=== PATIENT | male | born 1945 | race Caucasian/White ===

== ENCOUNTER 2017-01-25 15:16 | Observation (INO) | payer OTHER, BC ==
[~2017-01-25] VITALS: Ht 188 cm; Wt 99.8 kg
[2017-01-25] MEDS ORDERED: SODIUM CHLORIDE 0.9% 1000ML 1,000 ML IV SCH ×2 (15:29→21:30)
[2017-01-25 15:43] LABS: BASO % 0.2 %; BASO ABS # 0.01 K/uL (0-0.2); COMPLETE YES; EOS % 2.2 %; HEMATOCRIT 42.1 % (42-52); LYMPH % 40.8 %; LYMPH ABS # 2.63 K/uL (1.2-3.4); MEAN CELL VOLUME 90.5 fL (80-100); MEAN CORPUSCULAR HEMOGLOBIN 32.5 pg (25-34); MEAN CORPUSCULAR HGB CONC 35.9 g/dl (32-36); MEAN PLATELET VOLUME 10.5 fL (7.4-10.4); MONO % 9.3 %; NEUT % 47.5 %; PLATELET COUNT 131 K/uL (130-400); RED BLOOD COUNT 4.65 M/uL (4.7-6.1); WHITE BLOOD COUNT 6.45 K/uL (4.8-10.8)
[2017-01-25] MEDS ORDERED: CYAN250T PO (15:50)
[2017-01-25] MEDS ORDERED: MULT-845 PO (15:50)
--- NOTE | 2017-01-25 15:57 | EMERGENCY ROOM VISIT NOTE ---
History First contact with patient: 15:25 Chief Complaint: STROKE SYMPTOMS Stated Complaint: STROKE LIKE SYMPTOMS Nursing Triage Summary: pt reports 2 weeks ago has been having right sided weakness. hands and feet tingling. pt reports numbness in face 2 days ago. lips feeling numb. ringing in ears for over 1 month. History of Present Illness The patient is a 71 year old male who presents to the Emergency Room with complaints of Past Medical & Surgical Medical Problems: (1) No Known Active Medical Problems Social History Smoking Status: Never Smoker Current/Historical Medications Scheduled Cyanocobalamin (Vitamin B-12), Unknown Dose PO DAILY Multiple Vitamins W/ Minerals (Centrum Silver Adult 50+), 1 TAB PO DAILY Allergies Coded Allergies: Iodine (Verified Allergy, Intermediate, Violent illness, 01/25/17) Shellfish (Verified Allergy, Intermediate, Violent illness, 01/25/17) Physical Exam Vital Signs Date Time Temp Pulse Resp B/P Pulse Ox O2 Delivery O2 Flow Rate FiO2 01/25/17 16:51 69 20 147/83 95 Room Air 01/25/17 15:36 96 Room Air 01/25/17 15:36 79 01/25/17 15:22 36.8 77 16 188/85 97 Room Air Medical Decision & Procedures Laboratory Results 01/25/17 15:32 Red Blood Count 4.65, Mean Corpuscular Volume 90.5, Mean Corpuscular Hemoglobin 32.5, Mean Corpuscular Hemoglobin Concent 35.9, Mean Platelet Volume 10.5, Neutrophils (%) (Auto) 47.5, Lymphocytes (%) (Auto) 40.8, Monocytes (%) (Auto) 9.3, Eosinophils (%) (Auto) 2.2, Basophils (%) (Auto) 0.2, Neutrophils # (Auto) 3.07, Lymphocytes # (Auto) 2.63, Monocytes # (Auto) 0.60, Eosinophils # (Auto) 0.14, Basophils # (Auto) 0.01 01/25/17 15:32 Test 01/25/17 15:32 01/25/17 15:47 01/25/17 16:50 White Blood Count 6.45 K/uL (4.8-10.8) Red Blood Count 4.65 M/uL (4.7-6.1) Hemoglobin 15.1 g/dL (14.0-18.0) Hematocrit 42.1 % (42-52) Mean Corpuscular Volume 90.5 fL (80-100) Mean Corpuscular Hemoglobin 32.5 pg (25-34) Mean Corpuscular Hemoglobin Concent 35.9 g/dl (32-36) Platelet Count 131 K/uL (130-400) Mean Platelet Volume 10.5 fL (7.4-10.4) Neutrophils (%) (Auto) 47.5 % Lymphocytes (%) (Auto) 40.8 % Monocytes (%) (Auto) 9.3 % Eosinophils (%) (Auto) 2.2 % Basophils (%) (Auto) 0.2 % Neutrophils # (Auto) 3.07 K/uL (1.4-6.5) Lymphocytes # (Auto) 2.63 K/uL (1.2-3.4) Monocytes # (Auto) 0.60 K/uL (0.11-0.59) Eosinophils # (Auto) 0.14 K/uL (0-0.5) Basophils # (Auto) 0.01 K/uL (0-0.2) RDW Standard Deviation 43.5 fL (36.4-46.3) RDW Coefficient of Variation 13.2 % (11.5-14.5) Immature Granulocyte % (Auto) 0.0 % Immature Granulocyte # (Auto) 0.00 K/uL (0.00-0.02) Prothrombin Time 11.6 SECONDS (9.0-12.0) Prothromb Time International Ratio 1.1 (0.9-1.1) Activated Partial Thromboplast Time 26.8 SECONDS (21.0-31.0) Partial Thromboplastin Ratio 1.0 Anion Gap 6.0 mmol/L (3-11) Est Creatinine Clear Calc Drug Dose 80.9 ml/min Estimated GFR () 79.0 Estimated GFR (Non- 68.1 BUN/Creatinine Ratio 20.8 (10-20) Calcium Level 8.9 mg/dl (8.5-10.1) Total Creatine Kinase 131 U/L (39-308) Creatine Kinase MB 3.0 ng/ml (0.5-3.6) Creatine Kinase MB Ratio 2.3 (0-3.0) Troponin I < 0.015 ng/ml (0-0.045) Lyme Disease IgG Antibody NEG (NEG) Lyme Disease IgM Antibody NEG (NEG) Bedside Prothrombin Time INR 1.1 (0.9-1.1) Bedside Glucose 93 mg/dl (70-99) Urine Opiates Screen NEG (NEG) Urine Methadone, Qualitative NEG (NEG) Urine Barbiturates NEG (NEG) Urine Phencyclidine (PCP) Level NEG (NEG) Ur Amphetamine/Methamphetamine NEG (NEG) MDMA (Ecstasy) Screen NEG (NEG) Urine Benzodiazepines Screen NEG (NEG) Urine Cocaine Metabolite NEG (NEG) Urine Marijuana (THC) NEG (NEG) Departure Information Referrals No Doctor, Assigned (PCP) Patient Instructions My [facility]
[2017-01-25 16:02] LABS: BLOOD UREA NITROGEN 23 mg/dl (7-18); BUN/CREATININE RATIO 20.8 (10-20); CALCIUM 8.9 mg/dl (8.5-10.1); CARBON DIOXIDE 29 mmol/L (21-32); CHLORIDE 108 mmol/L (98-107); GLUCOSE 99 mg/dl (70-99); INR 1.1 (0.9-1.1); POTASSIUM 3.6 mmol/L (3.5-5.1); PROTHROMBIN TIME (PATIENT) 11.6 SECONDS (9.0-12.0); SODIUM 143 mmol/L (136-145)
[2017-01-25 16:06] LABS: CKMB/CK RATIO 2.3 (0-3.0)
--- NOTE | 2017-01-25 16:10 | EMERGENCY ROOM VISIT NOTE ---
History First contact with patient: 15:56 Chief Complaint: STROKE SYMPTOMS Stated Complaint: STROKE LIKE SYMPTOMS Nursing Triage Summary: pt reports 2 weeks ago has been having right sided weakness. hands and feet tingling. pt reports numbness in face 2 days ago. lips feeling numb. ringing in ears for over 1 month. History of Present Illness The patient is a 71 year old male who presents to the Emergency Room with complaints of stroke-like symptoms. Approximately 2 wks ago patient reports Right Sided weakness of face without noticeable facial droop. Symptoms progresses to Weakness of Right arm, Rt leg which resolved after 2 days. 2 days ago, patient noticed generalized lip numbness. He denies LOC, MULLEN, Seizure like symptoms. Currently, Rt facial change sin sensation persists. Additionally patient reports 1 month Hx of tinnitus. Pt denies change in vision, fevers, chest pain, shortness of breath, nausea, vomiting, diarrhea, pain with urination , and melena. No previous hx of CVA. No Hx of Smoking, HTN, Heart Disease, DM Review of Systems See HPI for pertinent positives & negatives. A total of 10 systems reviewed and were otherwise negative. Past Medical/Surgical History Medical Problems: (1) History of seizures as a child (2) Neurological symptoms Surgical Problems: (1) History of appendectomy Social History Smoking Status: Never Smoker Current/Historical Medications Scheduled Cyanocobalamin (B12), 500 MCG PO DAILY Multiple Vitamins W/ Minerals (Centrum Silver Adult 50+), 1 TAB PO DAILY Allergies Coded Allergies: Iodine (Verified Allergy, Intermediate, Violent illness, 01/25/17) Shellfish (Verified Allergy, Intermediate, Violent illness, 01/25/17) Physical Exam Vital Signs Date Time Temp Pulse Resp B/P Pulse Ox O2 Delivery O2 Flow Rate FiO2 01/25/17 17:32 70 16 180/97 98 Room Air 01/25/17 16:51 69 20 147/83 95 Room Air 01/25/17 15:36 96 Room Air 01/25/17 15:36 79 01/25/17 15:22 36.8 77 16 188/85 97 Room Air Physical Exam GENERAL: alert, well appearing, well nourished, no distress, non-toxic EYE EXAM: normal conjunctiva, PERRL and EOM's grossly intact OROPHARYNX: no exudate, no erythema, lips, buccal mucosa, and tongue normal and mucous membranes are moist NECK: supple, no nuchal rigidity, no adenopathy, non-tender LUNGS: Clear to auscultation. Normal chest wall mechanics HEART: no murmurs, S1 normal and S2 normal ABDOMEN: abdomen soft, non-tender, normo-active bowel sounds, no masses, no rebound or guarding. SKIN: no rashes and no bruising UPPER EXTREMITIES: upper extremities are grossly normal. LOWER EXTREMITIES: No pitting edema. NEURO EXAM: Normal sensorium, cranial nerves II-XII grossly intact, normal speech, no gross weakness of arms, no gross weakness of legs. No drift. Finger to nose intact. Gross sensation intact. Medical Decision & Procedures Laboratory Results 01/25/17 15:32 Red Blood Count 4.65, Mean Corpuscular Volume 90.5, Mean Corpuscular Hemoglobin 32.5, Mean Corpuscular Hemoglobin Concent 35.9, Mean Platelet Volume 10.5, Neutrophils (%) (Auto) 47.5, Lymphocytes (%) (Auto) 40.8, Monocytes (%) (Auto) 9.3, Eosinophils (%) (Auto) 2.2, Basophils (%) (Auto) 0.2, Neutrophils # (Auto) 3.07, Lymphocytes # (Auto) 2.63, Monocytes # (Auto) 0.60, Eosinophils # (Auto) 0.14, Basophils # (Auto) 0.01 01/25/17 15:32 Test 01/25/17 15:32 01/25/17 15:47 01/25/17 16:50 01/25/17 17:58 White Blood Count 6.45 K/uL (4.8-10.8) Red Blood Count 4.65 M/uL (4.7-6.1) Hemoglobin 15.1 g/dL (14.0-18.0) Hematocrit 42.1 % (42-52) Mean Corpuscular Volume 90.5 fL (80-100) Mean Corpuscular Hemoglobin 32.5 pg (25-34) Mean Corpuscular Hemoglobin Concent 35.9 g/dl (32-36) Platelet Count 131 K/uL (130-400) Mean Platelet Volume 10.5 fL (7.4-10.4) Neutrophils (%) (Auto) 47.5 % Lymphocytes (%) (Auto) 40.8 % Monocytes (%) (Auto) 9.3 % Eosinophils (%) (Auto) 2.2 % Basophils (%) (Auto) 0.2 % Neutrophils # (Auto) 3.07 K/uL (1.4-6.5) Lymphocytes # (Auto) 2.63 K/uL (1.2-3.4) Monocytes # (Auto) 0.60 K/uL (0.11-0.59) Eosinophils # (Auto) 0.14 K/uL (0-0.5) Basophils # (Auto) 0.01 K/uL (0-0.2) RDW Standard Deviation 43.5 fL (36.4-46.3) RDW Coefficient of Variation 13.2 % (11.5-14.5) Immature Granulocyte % (Auto) 0.0 % Immature Granulocyte # (Auto) 0.00 K/uL (0.00-0.02) Prothrombin Time 11.6 SECONDS (9.0-12.0) Prothromb Time International Ratio 1.1 (0.9-1.1) Activated Partial Thromboplast Time 26.8 SECONDS (21.0-31.0) Partial Thromboplastin Ratio 1.0 Anion Gap 6.0 mmol/L (3-11) Est Creatinine Clear Calc Drug Dose 80.9 ml/min Estimated GFR () 79.0 Estimated GFR (Non- 68.1 BUN/Creatinine Ratio 20.8 (10-20) Calcium Level 8.9 mg/dl (8.5-10.1) Total Creatine Kinase 131 U/L (39-308) Creatine Kinase MB 3.0 ng/ml (0.5-3.6) Creatine Kinase MB Ratio 2.3 (0-3.0) Troponin I < 0.015 ng/ml (0-0.045) Lyme Disease IgG Antibody NEG (NEG) Lyme Disease IgM Antibody NEG (NEG) Bedside Prothrombin Time INR 1.1 (0.9-1.1) Bedside Glucose 93 mg/dl (70-99) Urine Opiates Screen NEG (NEG) Urine Methadone, Qualitative NEG (NEG) Urine Barbiturates NEG (NEG) Urine Phencyclidine (PCP) Level NEG (NEG) Ur Amphetamine/Methamphetamine NEG (NEG) MDMA (Ecstasy) Screen NEG (NEG) Urine Benzodiazepines Screen NEG (NEG) Urine Cocaine Metabolite NEG (NEG) Urine Marijuana (THC) NEG (NEG) Medical Decision Differential Diagnosis includes but is not limited to ischemic Stroke, hemorrhagic stroke, bells palsy, mass, neoplasm, migraine headache, seizure, subarachnoid hemorrhage, TIA, and transient global amnesia. 71 yo M w/ hx of Seizures in childhood, not requiring medication p/w stroke- like symptoms 2 wks prior to arrival including persistent Rt sided facial paresthesia , RUE, RLE x 2 days, 1 month of tinnitus, BP 188/[address] Head: no intracranial abnormality CBC: unremarkable BMP: unremarkable PT/INR: 11.6/1.1 PTT: 26.8 Negative U Tox screen Lyme Disease Negative Facial Paresthesia , Hx of Rt sided weakness , now resolved, CVA vs TIA suspected. CT w/o evidence of Hemorrhage Lyme diseases ruled out with AB testing. Discussed case with JEEVAN Rosas ([facility]) who agreed to evaluate patient for inpatient service. Impression Primary Impression: Facial paresthesia Departure Information Dispostion Admitted as an inpatient Referrals No Doctor, Assigned (PCP) Patient Instructions My [facility] Resident Tracking Resident Involvement: Resident Care Provided Care Provided: Adult ED
--- NOTE | 2017-01-25 16:39 | DIAGNOSTIC IMAGING REPORT ---
CHEST ONE VIEW PORTABLE CLINICAL HISTORY: Stroke like symptoms. COMPARISON STUDY: No previous studies for comparison. FINDINGS: The patient is rotated. Mild asymmetric opacification of the right hemithorax is likely artifactual. Cardiac size is at the upper limits of normal. There is no evidence of pulmonary edema. There is no consolidation. No pneumothorax or pleural effusion is identified. IMPRESSION: 1. Rotated study. 2. No acute cardiopulmonary findings. Electronically signed by: Leo Kerns M.D. 01/25/2017 4:38 PM Dictated Date/Time: 01/25/2017 4:37 PM
[2017-01-25 16:40] LABS: LYME DISEASE AB IGG NEG (NEG); LYME DISEASE AB IGM NEG (NEG)
--- NOTE | 2017-01-25 16:49 | DIAGNOSTIC IMAGING REPORT ---
CT OF THE HEAD WITHOUT CONTRAST CLINICAL HISTORY: Stroke symptoms. Right arm and leg numbness. COMPARISON STUDY: No previous studies for comparison. CT DOSE: 623.48 mGy.cm TECHNIQUE: Helical axial images of the head were obtained without IV contrast. Automated exposure control was utilized for the study. FINDINGS: No acute intracranial hemorrhage, midline shift or mass effect is present. Brain volume is normal. Ventricular system is normal. The basilar cisterns are patent. No extra-axial collections are present. Good-white differentiation is maintained. There are no findings to suggest acute dural sinus thrombosis or acute territorial infarct. There are no significant calvarial abnormalities. Visualized portions of the sinuses and mastoid air cells are clear. IMPRESSION: No acute intracranial findings. Electronically signed by: Leo Kerns M.D. 01/25/2017 4:47 PM Dictated Date/Time: 01/25/2017 4:44 PM
[2017-01-25 17:18] LABS: BENZODIAZEPINE, URINE NEG (NEG); COCAINE,URINE NEG (NEG); PHENCYCLIDINE, URINE NEG (NEG)
--- NOTE | 2017-01-25 17:33 | EMERGENCY ROOM VISIT NOTE ---
ED Visit Note First contact with patient: 15:25 Resident Physician Supervision Note: I interviewed and examined the patient. Discussed with Dr. Baig and agree with findings and plan as documented in the note. Documented By: Darryl Cary Current/Historical Medications Scheduled Cyanocobalamin (Vitamin B-12), Unknown Dose PO DAILY Multiple Vitamins W/ Minerals (Centrum Silver Adult 50+), 1 TAB PO DAILY Allergies Coded Allergies: Iodine (Verified Allergy, Intermediate, Violent illness, 01/25/17) Shellfish (Verified Allergy, Intermediate, Violent illness, 01/25/17) Vital Signs Date Time Temp Pulse Resp B/P Pulse Ox O2 Delivery O2 Flow Rate FiO2 01/25/17 16:51 69 20 147/83 95 Room Air 01/25/17 15:36 96 Room Air 01/25/17 15:36 79 01/25/17 15:22 36.8 77 16 188/85 97 Room Air Laboratory Results 01/25/17 15:32 Red Blood Count 4.65, Mean Corpuscular Volume 90.5, Mean Corpuscular Hemoglobin 32.5, Mean Corpuscular Hemoglobin Concent 35.9, Mean Platelet Volume 10.5, Neutrophils (%) (Auto) 47.5, Lymphocytes (%) (Auto) 40.8, Monocytes (%) (Auto) 9.3, Eosinophils (%) (Auto) 2.2, Basophils (%) (Auto) 0.2, Neutrophils # (Auto) 3.07, Lymphocytes # (Auto) 2.63, Monocytes # (Auto) 0.60, Eosinophils # (Auto) 0.14, Basophils # (Auto) 0.01 01/25/17 15:32 Test 01/25/17 15:32 01/25/17 15:47 01/25/17 16:50 White Blood Count 6.45 K/uL (4.8-10.8) Red Blood Count 4.65 M/uL (4.7-6.1) Hemoglobin 15.1 g/dL (14.0-18.0) Hematocrit 42.1 % (42-52) Mean Corpuscular Volume 90.5 fL (80-100) Mean Corpuscular Hemoglobin 32.5 pg (25-34) Mean Corpuscular Hemoglobin Concent 35.9 g/dl (32-36) Platelet Count 131 K/uL (130-400) Mean Platelet Volume 10.5 fL (7.4-10.4) Neutrophils (%) (Auto) 47.5 % Lymphocytes (%) (Auto) 40.8 % Monocytes (%) (Auto) 9.3 % Eosinophils (%) (Auto) 2.2 % Basophils (%) (Auto) 0.2 % Neutrophils # (Auto) 3.07 K/uL (1.4-6.5) Lymphocytes # (Auto) 2.63 K/uL (1.2-3.4) Monocytes # (Auto) 0.60 K/uL (0.11-0.59) Eosinophils # (Auto) 0.14 K/uL (0-0.5) Basophils # (Auto) 0.01 K/uL (0-0.2) RDW Standard Deviation 43.5 fL (36.4-46.3) RDW Coefficient of Variation 13.2 % (11.5-14.5) Immature Granulocyte % (Auto) 0.0 % Immature Granulocyte # (Auto) 0.00 K/uL (0.00-0.02) Prothrombin Time 11.6 SECONDS (9.0-12.0) Prothromb Time International Ratio 1.1 (0.9-1.1) Activated Partial Thromboplast Time 26.8 SECONDS (21.0-31.0) Partial Thromboplastin Ratio 1.0 Anion Gap 6.0 mmol/L (3-11) Est Creatinine Clear Calc Drug Dose 80.9 ml/min Estimated GFR () 79.0 Estimated GFR (Non- 68.1 BUN/Creatinine Ratio 20.8 (10-20) Calcium Level 8.9 mg/dl (8.5-10.1) Total Creatine Kinase 131 U/L (39-308) Creatine Kinase MB 3.0 ng/ml (0.5-3.6) Creatine Kinase MB Ratio 2.3 (0-3.0) Troponin I < 0.015 ng/ml (0-0.045) Lyme Disease IgG Antibody NEG (NEG) Lyme Disease IgM Antibody NEG (NEG) Bedside Prothrombin Time INR 1.1 (0.9-1.1) Bedside Glucose 93 mg/dl (70-99) Urine Opiates Screen NEG (NEG) Urine Methadone, Qualitative NEG (NEG) Urine Barbiturates NEG (NEG) Urine Phencyclidine (PCP) Level NEG (NEG) Ur Amphetamine/Methamphetamine NEG (NEG) MDMA (Ecstasy) Screen NEG (NEG) Urine Benzodiazepines Screen NEG (NEG) Urine Cocaine Metabolite NEG (NEG) Urine Marijuana (THC) NEG (NEG) Departure Information Impression Primary Impression: Stroke-like symptoms Referrals Michele Andrews MD (PCP) Patient Instructions My [facility]
[2017-01-25] MEDS ORDERED: NITROGLYCERIN 0.4 MG SL PER TAB CHARGE SL PRN (18:00)
[2017-01-25] MEDS ORDERED: ACETAMINOPHEN 325 MG TAB PO PRN (18:00)
[2017-01-25] MEDS ORDERED: PHARMACIST DISCHARGE MED REC CONSULT PRN (18:00)
[2017-01-25] MEDS ORDERED: ONDANSETRON INJ 2 MG/ML 2 ML VIAL IV PRN (18:00)
[2017-01-25] MEDS ORDERED: CYAN100073 PO (18:11)
[2017-01-25] MEDS ORDERED: OPTIRAY 320 IV PRN (18:15)
[2017-01-25 18:38] VITALS: O2SAT 97; Ht 188 cm; Wt 99.8 kg
--- NOTE | 2017-01-25 18:42 | History and Physical ---
History & Physical Date & Time of Service: Jan 25, 2017 at 18:16 Chief Complaint: Stroke Like Symptoms Primary Care Physician: Michele Andrews MD History of Present Illness Source: patient This is a 71 y/o male with PMHx of remote seizures who presents to the ED c/o neurological sxs that began 2 weeks ago. Pt reports that 2 weeks ago he developed a strange sensation in the R side of his face as well as the R upper and lower extremities. Sxs resolved after about 2 days. Two days ago the same sxs returned and subsequently resolved. Today around 1400, patient developed a "strange sensation" to the R side of his face, R upper and lower extremity weakness along with lip numbness and trouble swallowing. All sxs have resolved except for persistent facial sxs. Pt reports a remote history of grand-mal seizures at 14y/o and 18 y/o. Etiology was unclear and patient was treated with Dilantin for years. He has been off the Dilantin for 15 years and has not had any episodes. Patient denies any seizure-like activity with his recent sxs. Pt has no history of stroke but does have a positive FmHx of stroke. Of note: chart lists Iodine as an allergy however patient states he has an allergy to shellfish and therefore was told he wasn't to have Iodine however he has never received contrast dye. He recently moved to the [facility] from [facility] and plans to establish care with Dr. Andrews. His first apt is scheduled for later this month. Pt denies fever/chills, diaphoresis, visual changes, headache, chest pain, palpitations, SOB, abd pain, N/V, bowel or bladder issues, LE edema, calf pain, lightheadedness/dizziness, facial droop, difficulty ambulating or slurred speech. In the ED, BP was elevated on arrival. Trop negative. CT head is negative. Pt is stable and will be admitted for further evaluation and treatment. Past Medical/Surgical History Medical Problems: (1) History of seizures as a child Permanent Comment: age 14 and 18; unknown etiology Status: Resolved Surgical Problems: (1) History of appendectomy Status: Resolved Social History Smoking Status: Never Smoker Alcohol Use: occasionally Drug Use: none Marital Status: Housing status: lives with significant other Allergies Coded Allergies: Iodine (Verified Allergy, Intermediate, Violent illness, 4/1/17) Shellfish (Verified Allergy, Intermediate, Violent illness, 01/25/17) Home Medications Scheduled Cyanocobalamin (B12), 500 MCG PO DAILY Multiple Vitamins W/ Minerals (Centrum Silver Adult 50+), 1 TAB PO DAILY Review of Systems Constitutional: No chills, No fatigue, No fever, No sweats, No weakness Eyes: No diplopia, No worsening of vision ENT: No hearing loss Respiratory: No cough, No shortness of breath Cardiovascular: No chest pain, No claudication, No edema, No palpitations Abdomen: No constipation, No diarrhea, No nausea, No pain, No vomiting Musculoskeletal: No calf pain, No swelling Genitourinary - Male: No dysuria Neurologic: + weakness (R sided) Psychiatric: No depression symptoms Endocrine: No fatigue Hematologic / Lymphatic: No abnormal bleeding/bruising Physical Exam Vital Signs Date Time Temp Pulse Resp B/P Pulse Ox O2 Delivery O2 Flow Rate FiO2 01/25/17 17:32 70 16 180/97 98 Room Air 01/25/17 16:51 69 20 147/83 95 Room Air 01/25/17 15:36 96 Room Air 01/25/17 15:36 79 01/25/17 15:22 36.8 77 16 188/85 97 Room Air General Appearance: WD/WN, no apparent distress, + pertinent finding (Pt is sitting up in bed with at bedside) Head: normocephalic, atraumatic Eyes: normal inspection, PERRL, EOMI ENT: hearing grossly normal Neck: supple Respiratory/Chest: chest non-tender, lungs clear, normal breath sounds, no respiratory distress Cardiovascular: regular rate, rhythm, no edema, no murmur Abdomen/GI: normal bowel sounds, non tender, soft Back: normal inspection Extremities/Musculoskelatal: normal inspection, no calf tenderness, no pedal edema Neurologic/Psych: 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 II-XII nml as tested, no motor/sensory deficits, alert, normal mood/affect, oriented x 3 Skin: normal color, warm/dry Diagnostics Laboratory Results Results Past 24 Hours Test 01/25/17 15:32 01/25/17 15:47 01/25/17 16:50 01/25/17 17:58 Range/Units White Blood Count 6.45 4.8-10.8 K/uL Red Blood Count 4.65 4.7-6.1 M/uL Hemoglobin 15.1 14.0-18.0 g/dL Hematocrit 42.1 42-52 % Mean Corpuscular Volume 90.5 80-100 fL Mean Corpuscular Hemoglobin 32.5 25-34 pg Mean Corpuscular Hemoglobin Concent 35.9 32-36 g/dl Platelet Count 131 130-400 K/uL Mean Platelet Volume 10.5 7.4-10.4 fL Neutrophils (%) (Auto) 47.5 % Lymphocytes (%) (Auto) 40.8 % Monocytes (%) (Auto) 9.3 % Eosinophils (%) (Auto) 2.2 % Basophils (%) (Auto) 0.2 % Neutrophils # (Auto) 3.07 1.4-6.5 K/uL Lymphocytes # (Auto) 2.63 1.2-3.4 K/uL Monocytes # (Auto) 0.60 0.11-0.59 K/uL Eosinophils # (Auto) 0.14 0-0.5 K/uL Basophils # (Auto) 0.01 0-0.2 K/uL RDW Standard Deviation 43.5 36.4-46.3 fL RDW Coefficient of Variation 13.2 11.5-14.5 % Immature Granulocyte % (Auto) 0.0 % Immature Granulocyte # (Auto) 0.00 0.00-0.02 K/uL Prothrombin Time 11.6 9.0-12.0 SECONDS Prothromb Time International Ratio 1.1 0.9-1.1 Activated Partial Thromboplast Time 26.8 21.0-31.0 SECONDS Partial Thromboplastin Ratio 1.0 Sodium Level 143 136-145 mmol/L Potassium Level 3.6 3.5-5.1 mmol/L Chloride Level 108 98-107 mmol/L Carbon Dioxide Level 29 21-32 mmol/L Anion Gap 6.0 3-11 mmol/L Blood Urea Nitrogen 23 7-18 mg/dl Creatinine 1.10 0.60-1.40 mg/dl Est Creatinine Clear Calc Drug Dose 80.9 ml/min Estimated GFR () 79.0 Estimated GFR (Non- 68.1 BUN/Creatinine Ratio 20.8 10-20 Random Glucose 99 70-99 mg/dl Calcium Level 8.9 8.5-10.1 mg/dl Total Creatine Kinase 131 39-308 U/L Creatine Kinase MB 3.0 0.5-3.6 ng/ml Creatine Kinase MB Ratio 2.3 0-3.0 Troponin I < 0.015 0-0.045 ng/ml Lyme Disease IgG Antibody NEG NEG Lyme Disease IgM Antibody NEG NEG Bedside Prothrombin Time INR 1.1 0.9-1.1 Bedside Glucose 93 70-99 mg/dl Urine Opiates Screen NEG NEG Urine Methadone, Qualitative NEG NEG Urine Barbiturates NEG NEG Urine Phencyclidine (PCP) Level NEG NEG Ur Amphetamine/Methamphetamine NEG NEG MDMA (Ecstasy) Screen NEG NEG Urine Benzodiazepines Screen NEG NEG Urine Cocaine Metabolite NEG NEG Urine Marijuana (THC) NEG NEG Diagnostic Radiology CT HEAD IMPRESSION: No acute intracranial findings. CXR IMPRESSION: 1. Rotated study. 2. No acute cardiopulmonary findings. EKG EKG: sinus rhythm at 85 bpm with PACs and no acute ischemic changes; no previous EKG available for comparison Impression Assessment and Plan R SIDED WEAKNESS; R/O CVA pt presents with intermittent R sided weakness for 2 weeks -admit observation status to telemetry -RFs include + FmHx -head CT is negative; obtain brain MRI and CTA head and neck for further evaluation (microbiology lab technician confirms it is safe to give contrast to patients with shellfish allergy) -obtain echo to r/o any cardiac abnormalities -neuro checks q4h -fasting lipids in AM -start ASA -PT/OT -consult speech to evaluate swallowing -Pt is not a candidate for Tpa at this time 2* to time elapsed since onset of sxs -consult neuro, Dr. Antonio-pending input -allow for permissive HTN in setting of possible CVA -continue to monitor REMOTE H/O SEIZURE -grand-mal seizure age 14 and 18 -was on Dilantin for years; stopped taking 15 years ago DVT PROPHYLAXIS -subq Lovenox CODE STATUS -FULL CODE status per discussion with patient upon admission DISPO Observation status until further evaluation and treatment is complete. Pt was seen in collaboration with Dr. Sloan. Please see addendum for further details. Thanks! -Of note: patient will be followed by Dr. Iyer starting tomorrow AM. ATTENDING ADDENDUM care coordinated with JEEVAN Andrade please refer to her notes for full details, I agree with her notes patient seen and examined, records reviewed by myself as well on exam, patient seen resting in bed, comfortable reports mild tingling of bilateral feet this evening, attributes to positioning in bed denies focal weakness, numbness or any other neuro symptom no other symptoms VS noted and reviewed oriented x 3, not in distress, speaks in sentences with no effort nor accessory muscle use normal rate, regular rhythm, no murmurs clear breath sounds bilaterally non distended, soft, nontender no bipedal edema, erythema, warmth CN 2-12 grossly intact, motor 5/5, sensation 100% Hg 15.[address] head: No acute intracranial findings. ASSESSMENT/PLAN> 71 year old male with remote history of seizure presenting with intermittent right sided numbness. INTERMITTENT RIGHT SIDED NUMBNESS CT head no acute process CT angio head and neck: unrevealing MRI Brain: pending Aspirin started Dr. Antonio consulted ELEVATED BLOOD PRESSURE monitor trend PRN Clonidine for syst bp > 180 other diagnoses and plan of care as per JEEVAN Andrade's notes medical condition and plan of care discussed with patient, he is comfortable and agreeable with plan of care Richard Sloan MD VTE Prophylaxis VTE Risk Assessment Done? Y/N: Yes Risk Level: Moderate
[2017-01-25] MEDS ORDERED: IV FLUIDS COMPLETED PRN (18:45)
--- NOTE | 2017-01-25 18:57 | DIAGNOSTIC IMAGING REPORT ---
CT ANGIOGRAPHY OF THE NECK WITH CONTRAST CLINICAL HISTORY: Right arm and leg numbness. Stroke symptoms. COMPARISON STUDY: No previous studies for comparison. Technique: CT angiography of the carotid and vertebral arteries was obtained using [employer] 320 IV and 3D reconstruction on an independent workstation. NASCET criteria was utilized. CT DOSE: 668.91 mGy.cm Findings: Lung apices are clear. There is no cervical lymphadenopathy. No mucosal lesions are identified within the neck although these may be occult by CT. The bilateral common carotid, internal carotid and vertebral arteries are patent. There is no significant stenosis. There is minimal plaque within the bilateral internal carotid arteries without significant stenosis. There is no dissection within the major vessels of the neck. The CTA of the head will be reported separately. IMPRESSION: Unremarkable CTA of the neck. No stenosis. No dissection. Electronically signed by: Leo Kerns M.D. 01/25/2017 6:56 PM Dictated Date/Time: 01/25/2017 6:50 PM
--- NOTE | 2017-01-25 19:03 | DIAGNOSTIC IMAGING REPORT ---
CTA ANGIOGRAPHY OF THE HEAD CLINICAL HISTORY: Right arm and leg weakness. Stroke symptoms. COMPARISON STUDY: Head CT January 25, 2017 at 4:10 PM. TECHNIQUE: Helical axial images of the head were obtained following uneventful intravenous administration of 115 cc of [employer] 320. FINDINGS: The bilateral M1, M2, A1 and A2 segments are patent. There is no intracranial aneurysm or abrupt vessel cut off. There is persistence of the left posterior cerebral artery. The left vertebral artery is dominant. The right vertebral artery is diminutive. The posterior circulation is intact. No aneurysm is identified. Ventricular system is normal. Basilar cisterns are patent. There are no extra-axial collections. Brain volume is normal. There is mild mucosal thickening of the sinuses. IMPRESSION: Unremarkable CTA of the head. Electronically signed by: Leo Kerns M.D. 01/25/2017 7:02 PM Dictated Date/Time: 01/25/2017 6:59 PM
[2017-01-25 19:50] VITALS: O2SAT 96
[2017-01-25 20:19] VITALS: BP 168/83; PULSE 58; TEMP 36.8; O2SAT 95
[2017-01-25] MEDS ORDERED: ENOXAPARIN 40 MG/0.4 ML SYR SQ SCH (21:00)
[2017-01-25] MEDS ORDERED: CLONIDINE HCL 0.1 MG TAB PO PRN (21:30)
[2017-01-25] MEDS ORDERED: ASPIRIN 81 MG ECTAB PO ONE (21:45)
--- NOTE | 2017-01-25 22:55 | DIAGNOSTIC IMAGING REPORT ---
MRI OF THE BRAIN WITHOUT CONTRAST CLINICAL HISTORY: Right-sided weakness and numbness. Evaluate for cerebrovascular accident. COMPARISON STUDY: Head CT and CTA of the head performed earlier today. TECHNIQUE: Utilizing a 1.5 Gloria magnet and dedicated coil, multiplanar, multiecho imaging of the brain was performed without IV contrast. FINDINGS: There are no areas of restricted diffusion. No acute intracranial hemorrhage, midline shift or mass effect is present. Brain volume is normal. Ventricular system is normal. Basilar cisterns are patent. There are no extra-axial collections. Flow-voids for the major intracranial vessels are present. No intracranial masses are identified on this unenhanced exam. There are few small white matter T2 hyperintense foci. Calvarial signal is maintained. There is mild mucosal thickening of the maxillary sinuses. IMPRESSION: No acute intracranial findings. Unremarkable unenhanced MRI of the brain. Electronically signed by: Leo Kerns M.D. 01/25/2017 10:54 PM Dictated Date/Time: 01/25/2017 10:49 PM
[2017-01-25 23:56] VITALS: BP 148/83; PULSE 63; TEMP 36.9; O2SAT 95
[2017-01-26 05:15] VITALS: BP 115/63; PULSE 62; TEMP 36.4; O2SAT 97
[2017-01-26 05:53] LABS: BASO % 0.2 %; BASO ABS # 0.01 K/uL (0-0.2); COMPLETE YES; EOS % 2.1 %; HEMATOCRIT 40.9 % (42-52); IG% 0.2 %; LYMPH % 32.9 %; LYMPH ABS # 1.87 K/uL (1.2-3.4); MEAN CELL VOLUME 90.5 fL (80-100); MEAN CORPUSCULAR HEMOGLOBIN 31.4 pg (25-34); MEAN CORPUSCULAR HGB CONC 34.7 g/dl (32-36); MEAN PLATELET VOLUME 10.7 fL (7.4-10.4); MONO % 11.1 %; NEUT % 53.5 %; PLATELET COUNT 120 K/uL (130-400); RED BLOOD COUNT 4.52 M/uL (4.7-6.1); WHITE BLOOD COUNT 5.69 K/uL (4.8-10.8)
[2017-01-26 06:18] LABS: CALCIUM 8.3 mg/dl (8.5-10.1); CREATININE 0.96 mg/dl (0.60-1.40); POTASSIUM 3.8 mmol/L (3.5-5.1)
[2017-01-26 06:21] LABS: CHOLESTEROL/HDL RATIO 2.9
[2017-01-26 07:11] VITALS: BP 126/63; PULSE 67; TEMP 36.4; O2SAT 96
[2017-01-26] MEDS: ASPIRIN 81 MG ECTAB PO SCH (08:04)
[2017-01-26] MEDS: CEROVITE ADV FORMULA TAB PO SCH (08:04)
[2017-01-26] MEDS: CYANOCOBALAMIN 500 MCG TAB (VIT B-12) PO SCH (08:04)
[2017-01-26] MEDS ORDERED: ATORVASTATIN 40 MG TAB PO SCH (09:00)
[2017-01-26 11:22] VITALS: BP 156/77; PULSE 75; TEMP 36.9; O2SAT 96
[2017-01-26] MEDS ORDERED: LISINOPRIL 5 MG TAB PO ONE (12:30)
--- NOTE | 2017-01-26 12:41 | CONSULTATION REPORT ---
DATE OF CONSULTATION: 01/26/2017 CONSULTATION FOR: Dr. Iyer. HISTORY OF PRESENT ILLNESS: Mr. Pool is a 71 years old. 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 He is a former [place] of [place], but then left after he attended college and has lived in [place], ever since. He has had some medical followup over the years, about every 18 months or so and apparently has had some marginal elevation of the blood pressure, but not to the degree that treatment was recommended. He has a remote history of seizures, the first occurring at age 14 and another at age 18 and he was assessed at [facility] in [place] on both of these occasions with diagnosis of epilepsy being made, but without any real detailed recall about any testing that was done. He does recall having a spinal tap and one point was told he had an echovirus infection. Whatever the case, he was discharged on Dilantin and was followed for years with low doses of drug, i.e. 100 twice a day and after 25 years and with persistent low levels, the drug was finally stopped with the impression being that he was subtherapeutic and had been for quite some time and still seizure free. He thinks he has had some abnormal EEGs in the past but has no idea when they were recorded or what the abnormalities consistent of, and he has had no recent neuro imaging studies. He has been free of major medical issues up until about 3 weeks ago when he developed a strange sensation in the right arm and leg, which resolved after about 2 days. There were no involuntary muscle movement and he really does not talk about tingling or typical paresthesias,and there was not any real sensory "march" that I can detect and he was not alarmed about it, but his significant other convinced him to call for medical appointment, he has one with Dr. Andrews coming up. Two days ago he had some circumoral paresthesias and perhaps this similar strange sensation in the right side, but this was a very brief duration, and finally he decided to come in for evaluation. In the ER as examination was normal with the exception of a blood pressure elevation of 188 systolic and diastolic in the high 90s. This has fluctuated to some degree ever since but this is the highest recording I see. There were no pulse irregularities. Basic laboratory studies were normal and subsequent analysis with MRI scans and CTAs of the cerebral vessels have shown no abnormalities. An echocardiogram has been done, I have not seen the report. Dr. Iyer and I discussed the case right now and he is going to be started on lisinopril and an aspirin, which he has already received. PAST MEDICAL HISTORY: Significant for perhaps some marginal hypertension in the past, not requiring treatment. The history of seizures and he has had an appendectomy. ALLERGIES: HE HAS ALLERGIES TO IODINE AND SHELLFISH, but He, however, did have the CT angiograms without any particular issue now. So, I am not sure how valid the allergy really is. MEDICATIONS: He currently takes a very few medications at home other than B12 500 mcg daily and some multivitamins. SOCIAL HISTORY: Reveals to be a never smoker. He uses alcohol. He lives with a significant other. REVIEW OF SYSTEMS: He has had no recent fevers, sweats, or chills. No issues were with head, eyes, ears, nose and throat other than some tinnitus. He has had no cardiopulmonary issues other than marginal hypertension and the hypertension that was detected on admission. He has had no gastrointestinal, genitourinary, musculoskeletal issues and hematologically and endocrine lovell there are no apparent problems. Neurologically, there is a remote history for seizures, but he does recall the symptoms and denies having any symptoms similar to ones he presented with prior to his seizures, but again admits that his memory for these is to be fairly poor. PHYSICAL EXAMINATION: VITAL SIGNS: His blood pressure 180/97, is now dropped down; his pulse was 70 and regular, respirations are 16. GENERAL: He was a tall, well-developed, well-nourished man appearing his stated age. HEENT: There were no deformities on examination of head, eyes, ears, nose and throat. LUNGS: Clear. HEART: Had a regular rhythm without murmurs. EXTREMITIES: Normal. NEUROLOGIC: Revealed intact cranial nerves. Normal mental status. Normal facial motility and strength. Normal facial sensation. Tongue protrudes in the midline. Gait was unremarkable. No drift or pronation sign, tremor, tics, choreiform activity. Reflex testing, strength testing and sensation were all unremarkable. LABORATORY AND IMAGING STUDIES: As described above. The imaging studies show no significant extracranial vascular compromise, no intracranial vascular compromise and MRI scan shows only a few high T2 intensity signals, nothing specific in a manner of this age. IMPRESSION AND RECOMMENDATIONS: I am not sure what the events he describes reflected. I do not think these were partial seizures, but we are going to get an EEG just to check this out. Unless the EEG is markedly abnormal; however, I would not restart anticonvulsants. It is possible these were hypertensive surges, particularly in light of the fact that his blood pressure on presentation was elevated, but this is going to require observation as well and clearly treatment with an MESSI inhibitor and I would add aspirin, just on the outside chance that some of these were indeed transient ischemic attacks. The echocardiogram needs to be reviewed, but again unless this is markedly abnormal, I see no reason to do anything more. At this point, he needs to be seen by Dr. Andrews in followup. I would be happy to look at him if Dr. Andrews feels I need to and certainly if his EEG is abnormal, we will have to make a followup visit and discuss some options and these spells continue, I will have to take a look at him again. Addendum EEG is normal no need for aeds MTDD
[2017-01-26 15:01] VITALS: BP 131/69; PULSE 64; TEMP 37.2; O2SAT 95
--- NOTE | 2017-01-26 17:41 | Progress Note ---
Internal Med Progress Note Date of Service: Jan 26, 2017. Provider Documentation: SUBJECTIVE: patient presented with right sided face and extremity strange sensation on and off currently asymptomatic has mild headache no blurred vision no dizziness no chest pain or sob OBJECTIVE: Vital Signs-as noted below Exam: General-alert and oriented x 3 Not in distress ENT-normal hearing Neck-no neck masses Lungs-cta b/l no wheezing no crackles Heart-s1 and s2 no murmurs' Abdomen-soft bowel sounds present non tender no distension Extremities-no edema no erythema Neuro-alert and awake and oriented non focal Lab data as noted below. ASSESSMENT & PLAN: R SIDED WEAKNESS; R/O CVA right sided starnge feeling resolved now BP high on presentation MRI head CTA head and neck unremarkable await echo and eeg studies seen by neurology and appreciate inputs [id number], hdl 44 mostly from uncontrolled htn started on aspirin and lisinopril will monitor REMOTE H/O SEIZURE grand-mal seizure age 14 and 18 was on Dilantin for years; stopped taking 15 years ago will f/u eeg. DVT PROPHYLAXIS Lovenox CODE STATUS FULL CODE per h and p DISPOSITION possible d/c in am Vital Signs: Date Time Temp Pulse Resp B/P Pulse Ox O2 Delivery O2 Flow Rate FiO2 01/26/17 15:01 37.2 64 16 131/69 95 Room Air 01/26/17 12:00 Room Air 01/26/17 11:22 36.9 75 16 156/77 96 Room Air 01/26/17 08:00 Room Air 01/26/17 07:11 36.4 67 16 126/63 96 Room Air 01/26/17 05:15 36.4 62 18 115/63 97 Room Air 01/26/17 04:03 Room Air 01/26/17 00:14 Room Air 01/25/17 23:56 36.9 63 18 148/83 95 Room Air 01/25/17 20:19 36.8 58 18 168/83 95 Room Air 01/25/17 19:50 37.0 60 18 147/89 96 Room Air 01/25/17 18:38 97 Room Air 01/25/17 18:31 108 18 141/85 97 Room Air 01/25/17 17:32 70 16 180/97 98 Room Air Lab Results: Results Past 24 Hours Test 01/26/17 05:34 Range/Units White Blood Count 5.69 4.8-10.8 K/uL Red Blood Count 4.52 4.7-6.1 M/uL Hemoglobin 14.2 14.0-18.0 g/dL Hematocrit 40.9 42-52 % Mean Corpuscular Volume 90.5 80-100 fL Mean Corpuscular Hemoglobin 31.4 25-34 pg Mean Corpuscular Hemoglobin Concent 34.7 32-36 g/dl Platelet Count 120 130-400 K/uL Mean Platelet Volume 10.7 7.4-10.4 fL Neutrophils (%) (Auto) 53.5 % Lymphocytes (%) (Auto) 32.9 % Monocytes (%) (Auto) 11.1 % Eosinophils (%) (Auto) 2.1 % Basophils (%) (Auto) 0.2 % Neutrophils # (Auto) 3.05 1.4-6.5 K/uL Lymphocytes # (Auto) 1.87 1.2-3.4 K/uL Monocytes # (Auto) 0.63 0.11-0.59 K/uL Eosinophils # (Auto) 0.12 0-0.5 K/uL Basophils # (Auto) 0.01 0-0.2 K/uL RDW Standard Deviation 43.5 36.4-46.3 fL RDW Coefficient of Variation 13.2 11.5-14.5 % Immature Granulocyte % (Auto) 0.2 % Immature Granulocyte # (Auto) 0.01 0.00-0.02 K/uL Sodium Level 144 136-145 mmol/L Potassium Level 3.8 3.5-5.1 mmol/L Chloride Level 108 98-107 mmol/L Carbon Dioxide Level 30 21-32 mmol/L Anion Gap 6.0 3-11 mmol/L Blood Urea Nitrogen 17 7-18 mg/dl Creatinine 0.96 0.60-1.40 mg/dl Est Creatinine Clear Calc Drug Dose 91.9 ml/min Estimated GFR () 93.1 Estimated GFR (Non- 80.3 BUN/Creatinine Ratio 18.0 10-20 Random Glucose 102 70-99 mg/dl Calcium Level 8.3 8.5-10.1 mg/dl Triglycerides Level 79 0-150 mg/dl Cholesterol Level 126 0-200 mg/dl HDL Cholesterol 44 mg/dl LDL Cholesterol, Calculated 66 mg/dl VLDL Cholesterol, Calculated 16 mg/dl Cholesterol/HDL Ratio 2.9
[2017-01-26 21:08] VITALS: BP 135/81; PULSE 62; TEMP 36.7; O2SAT 93
[2017-01-26 23:50] VITALS: BP 115/55; PULSE 63; TEMP 36.6; O2SAT 97
[2017-01-27 04:00] VITALS: BP 125/75; PULSE 67; TEMP 36.4; O2SAT 95
[2017-01-27 07:24] LABS: BASO % 0.2 %; BASO ABS # 0.01 K/uL (0-0.2); COMPLETE YES; EOS % 2.1 %; HEMATOCRIT 43.8 % (42-52); LYMPH % 32.2 %; LYMPH ABS # 2.02 K/uL (1.2-3.4); MEAN CELL VOLUME 90.1 fL (80-100); MEAN CORPUSCULAR HEMOGLOBIN 31.7 pg (25-34); MEAN CORPUSCULAR HGB CONC 35.2 g/dl (32-36); MEAN PLATELET VOLUME 10.6 fL (7.4-10.4); NEUT % 55.5 %; PLATELET COUNT 131 K/uL (130-400); RED BLOOD COUNT 4.86 M/uL (4.7-6.1); WHITE BLOOD COUNT 6.27 K/uL (4.8-10.8)
[2017-01-27 07:32] LABS: ESTIMATED AVERAGE GLUCOSE 120 mg/dl; HA1C FLAG Normal (Normal)
[2017-01-27 07:50] VITALS: BP 145/77; PULSE 62; TEMP 36.6; O2SAT 95
--- NOTE | 2017-01-27 07:51 | ELECTROENCEPHALOGRAPH REPORT ---
CLINICAL DIAGNOSIS: Episodic right-sided numbness with remote history of seizures in childhood and adolescence. ELECTROENCEPHALOGRAM DIAGNOSIS: Essentially normal during wakefulness. DESCRIPTION OF TRACING: This EEG was done as a bedside recording and is of reasonable technical quality, with the exception of a persistent O2 electrode artifact. Otherwise, the tracing is free of technical issues. A few or no muscle movement artifacts are seen and a video analysis of patient movement and behavior confirms this. Photic stimulation was performed. Under these conditions, there is evidence for a background rhythm in the alpha range of up to 9 Hz of maximum frequency and 30 microvolts of maximum amplitude. This is maximum in posterior head regions and bilaterally symmetrical. Polymorphic mid frequency theta activity is seen over all head regions without clear focal or regional predominance. Anterior head region maximum bilaterally symmetrical low voltage fast activity in the beta range is present. Photic stimulation provokes a modest driving response without a photomyogenic or photoparoxysmal component. At no time during the waking tracing is there evidence for potentially epileptogenic activity in the form of polyspike or spike wave bursts, focal sharp waves or focal spikes. INTERPRETATION: This EEG is essentially normal during wakefulness without evidence for focal or generalized encephalopathy and without evidence for potentially epileptogenic activity.
[2017-01-27 07:55] LABS: BUN/CREATININE RATIO 21.8 (10-20); CALCIUM 9.1 mg/dl (8.5-10.1)
[2017-01-27] MEDS: CEROVITE ADV FORMULA TAB PO SCH (08:23)
[2017-01-27] MEDS: CYANOCOBALAMIN 500 MCG TAB (VIT B-12) PO SCH (08:23)
[2017-01-27] MEDS: ASPIRIN 81 MG ECTAB PO SCH (08:23)
[2017-01-27] MEDS ORDERED: LISINOPRIL 10 MG TAB PO SCH (09:00)
--- NOTE | 2017-01-27 09:15 | ECHOCARDIOGRAM REPORT ---
*NOTICE TO RECEIVING [employer] This information is strictly Confidential and protected under [place] law. [place] law prohibits you from making any further disclosure of this information unless further disclosure is expressly permitted by the written consent of the person to whom it pertains or is authorized by law. A general authorization for the release of medical or other information is not sufficient for this purpose. Hospital accepts no responsibility if the information is made available to any other person, INCLUDING THE PATIENT. Interpretation Summary * Name: RANDOLPH SUAREZ JR Study Date: 01/26/2017 03:51 PM BP: 115/63 mmHg * Patient Location: [facility] HR: 62 * : 1945 (M/d/yyyy) Gender: Male Height: 73 in * Age: 71 yrs Ethnicity: CA Weight: 229 lb * Ordering Physician: Yanna Andrade * Performed By: Candice Mishra RDCS * * Reason For Study: CVA * BSA: 2.3 m2 * The study was technically adequate. * There is no comparison study available. * -- Conclusions -- * Left ventricular systolic function is normal. * Ejection Fraction = 60-65%. * The left atrium is mildly dilated. * Aortic valve sclerosis mild, without significant aortic valvular stenosis. * Injection of contrast documented no interatrial shunt. Procedure Details * A complete two-dimensional transthoracic echocardiogram was performed (2D, M-mode, Doppler and color flow Doppler). * A saline contrast injection was performed to assess for cardiac shunting. * The injection was performed through an intravenous line in the left arm. * The attending nurse who injected the saline contrast was Farzana Pope RN. * A total of 10 cc of agitated saline was given. Left Ventricle * The left ventricle is normal in size. * There is normal left ventricular wall thickness. * Left ventricular systolic function is normal. * Ejection Fraction = 60-65%. * The left ventricular wall motion is normal. Right Ventricle * The right ventricle is normal size. * The right ventricular systolic function is normal as assessed by tricuspid annular plane systolic excursion (TAPSE) (normal >1.5 cm). Atria * The left atrium is mildly dilated. * Right atrial size is normal. * There is no evidence of atrial septal defect, but resolution does not allow assessment for a patent foramen ovale. * Injection of contrast documented no interatrial shunt. Mitral Valve * The mitral valve is normal. * There is no mitral valve stenosis. * Significant mitral regurgitation is absent. Tricuspid Valve * The tricuspid valve is normal. * There is no tricuspid stenosis. * Significant tricuspid regurgitation is absent. Aortic Valve * The aortic valve is trileaflet. * Aortic valve sclerosis mild, without significant aortic valvular stenosis. * Aortic stenosis is absent. * There is no significant aortic regurgitation. Pulmonic Valve * The pulmonary valve is not well seen, but the Doppler examination is normal without significant regurgitation or stenosis. Great Vessels * The aortic root is normal size. Pericardium/Pleural * There is no pericardial effusion. Great Vessels * Normal inferior vena cava diameter and respiratory variation suggests normal central venous pressure. Left Ventricular Diastolic Function * Pulse wave TDI of the anterior and posterior mitral annulas demonstrates normal LV relaxation MMode 2D Measurements and Calculations IVSd 1.3 cm LVIDd 3.9 cm LVIDs 2.6 cm LVPWd 1.1 cm IVS/LVPW 1.2 FS 32.7 % EDV(Teich) 65.5 ml ESV(Teich) 25.0 ml EF(Teich) 61.9 % EDV(cubed) 58.8 ml ESV(cubed) 17.9 ml EF(cubed) 69.6 % LV mass(C)d 158.9 grams LV mass(C)dI 69.7 grams/m\S\2 CO(Teich) 2.2 l/min CI(Teich) 0.98 l/min/m\S\2 SV(Teich) 40.5 ml SI(Teich) 17.8 ml/m\S\2 CO(cubed) 2.3 l/min CI(cubed) 0.99 l/min/m\S\2 SV(cubed) 40.9 ml SI(cubed) 18.0 ml/m\S\2 Ao root diam 3.1 cm Ao root area 7.4 cm\S\2 ACS 1.6 cm LA dimension 4.2 cm asc Aorta Diam 3.4 cm LA/Ao 1.4 LVOT diam 2.0 cm LVOT area 3.1 cm\S\2 LVAd ap4 27.9 cm\S\2 LVLd ap4 8.3 cm EDV(MOD-sp4) 77.0 ml LVAs ap4 14.3 cm\S\2 LVLs ap4 6.7 cm ESV(MOD-sp4) 26.7 ml EF(MOD-sp4) 65.3 % LVAd ap2 30.8 cm\S\2 LVLd ap2 8.9 cm EDV(MOD-sp2) 88.7 ml LVAs ap2 15.5 cm\S\2 LVLs ap2 6.9 cm ESV(MOD-sp2) 29.8 ml EF(MOD-sp2) 66.4 % CO(MOD-sp4) 2.8 l/min CI(MOD-sp4) 1.2 l/min/m\S\2 SV(MOD-sp4) 50.3 ml SI(MOD-sp4) 22.1 ml/m\S\2 CO(MOD-sp2) 3.2 l/min CI(MOD-sp2) 1.4 l/min/m\S\2 SV(MOD-sp2) 58.9 ml SI(MOD-sp2) 25.8 ml/m\S\2 Doppler Measurements and Calculations MV E max susanne 82.0 cm/sec MV A max susanne 58.2 cm/sec MV E/A 1.4 MV dec time 0.18 sec Ao V2 max 138.5 cm/sec Ao max PG 7.7 mmHg Ao max PG (full) 0.86 mmHg NILE(V,A) 2.9 cm\S\2 NILE(V,D) 2.9 cm\S\2 LV V1 max PG 6.8 mmHg LV V1 max 130.5 cm/sec PA V2 max 91.6 cm/sec PA max PG 3.4 mmHg PA acc slope 412.6 cm/sec\S\2 PA acc time 0.13 sec TR max susanne 107.8 cm/sec PA pr(Accel) 18.8 mmHg
[2017-01-27] MEDS ORDERED: LSN10 PO (11:05)
[2017-01-27] MEDS ORDERED: ASPEC81 PO (11:05)
--- NOTE | 2017-01-27 11:08 | Discharge Instructions ---
Discharge Instructions Date of Service Jan 27, 2017. Admission Reason for Admission: Neurological Symtoms Discharge Discharge Diagnosis / Problem: tia/hypertensive urgency Discharge Goals Goal(s): Decrease discomfort, Improve function Activity Recommendations Activity Limitations: resume your previous activity . Instructions / Follow-Up Instructions / Follow-Up FOLLOWUP WITH FAMILY DOCTOR Michlee Reeves ON January AT 12:50PM. FOLLOWUP BLOOD PRESSURE WITH FAMILY DOCTOR. LAB: BMP IN 1-2 WEEKS AND FOLLOW RESULTS WITH FAMILY DOCTOR. Current Hospital Diet Patient's current hospital diet: AHA Diet (Heart Healthy) Discharge Diet Recommended Diet: AHA Diet (Heart Healthy) Pending Studies Studies pending at discharge: no Laboratory Results Hemoglobin A1c Test 01/25/17 15:32 Range/Units Estimated Average Glucose 120 mg/dl Hemoglobin A1c 5.8 H 4.5-5.6 % Lipid Panel Test 01/26/17 05:34 Range/Units Triglycerides Level 79 0-150 mg/dl Cholesterol Level 126 0-200 mg/dl HDL Cholesterol 44 mg/dl Cholesterol/HDL Ratio 2.9 LDL Cholesterol, Calculated 66 mg/dl Medical Emergencies . Who to Call and When: Medical Emergencies: If at any time you feel your situation is an emergency, please call 911 immediately. . Non-Emergent Contact Non-Emergency issues call your: Primary Care Provider . . "Provider Documentation" section prepared by Giorgio Iyer. VTE Core Measure Inpt VTE Proph given/why not?: SCD's
[2017-01-27 11:48] VITALS: BP 145/77; PULSE 62; TEMP 36.6; O2SAT 95
--- NOTE | 2017-01-27 19:28 | Progress Note ---
Internal Med Progress Note Date of Service: Jan 27, 2017. Provider Documentation: SUBJECTIVE: no weakness no numbness feeling good ok to go home OBJECTIVE: Vital Signs-as noted below Exam: General-alert and oriented x 3 Not in distress ENT-normal hearing Neck-no neck masses Lungs-cta b/l no wheezing no crackles Heart-s1 and s2 no murmurs' Abdomen-soft bowel sounds present non tender no distension Extremities-no edema no erythema Neuro-alert and awake and oriented non focal Lab data as noted below. ASSESSMENT & PLAN: R SIDED WEAKNESS; R/O CVA right sided starnge feeling resolved now BP high on presentation MRI head CTA head and neck unremarkable echo and eeg unremarkable seen by neurology and appreciate inputs ldl66, hdl 44 mostly from uncontrolled htn started on aspirin and lisinopril discharged home to f/u with pcp REMOTE H/O SEIZURE grand-mal seizure age 14 and 18 was on Dilantin for years; stopped taking 15 years ago eeg unremarkable. Discharged home Vital Signs: Date Time Temp Pulse Resp B/P Pulse Ox O2 Delivery O2 Flow Rate FiO2 01/27/17 11:48 36.6 62 20 95 Room Air 01/27/17 08:00 Room Air 01/27/17 07:50 36.6 62 145/77 95 Room Air 01/27/17 04:00 Room Air 01/27/17 04:00 36.4 67 20 125/75 95 Room Air 01/27/17 00:05 Room Air 01/26/17 23:50 36.6 63 20 115/55 97 Room Air 01/26/17 21:08 36.7 62 18 135/81 93 Room Air 01/26/17 20:00 Room Air Lab Results: Results Past 24 Hours Test 01/27/17 07:05 Range/Units White Blood Count 6.27 4.8-10.8 K/uL Red Blood Count 4.86 4.7-6.1 M/uL Hemoglobin 15.4 14.0-18.0 g/dL Hematocrit 43.8 42-52 % Mean Corpuscular Volume 90.1 80-100 fL Mean Corpuscular Hemoglobin 31.7 25-34 pg Mean Corpuscular Hemoglobin Concent 35.2 32-36 g/dl Platelet Count 131 130-400 K/uL Mean Platelet Volume 10.6 7.4-10.4 fL Neutrophils (%) (Auto) 55.5 % Lymphocytes (%) (Auto) 32.2 % Monocytes (%) (Auto) 10.0 % Eosinophils (%) (Auto) 2.1 % Basophils (%) (Auto) 0.2 % Neutrophils # (Auto) 3.48 1.4-6.5 K/uL Lymphocytes # (Auto) 2.02 1.2-3.4 K/uL Monocytes # (Auto) 0.63 0.11-0.59 K/uL Eosinophils # (Auto) 0.13 0-0.5 K/uL Basophils # (Auto) 0.01 0-0.2 K/uL RDW Standard Deviation 43.2 36.4-46.3 fL RDW Coefficient of Variation 13.1 11.5-14.5 % Immature Granulocyte % (Auto) 0.0 % Immature Granulocyte # (Auto) 0.00 0.00-0.02 K/uL Sodium Level 145 136-145 mmol/L Potassium Level 4.0 3.5-5.1 mmol/L Chloride Level 109 98-107 mmol/L Carbon Dioxide Level 28 21-32 mmol/L Anion Gap 8.0 3-11 mmol/L Blood Urea Nitrogen 22 7-18 mg/dl Creatinine 1.00 0.60-1.40 mg/dl Est Creatinine Clear Calc Drug Dose 88.0 ml/min Estimated GFR () 88.6 Estimated GFR (Non- 76.5 BUN/Creatinine Ratio 21.8 10-20 Random Glucose 95 70-99 mg/dl Calcium Level 9.1 8.5-10.1 mg/dl
--- NOTE | 2017-01-27 19:43 | Discharge Summary ---
Discharge Summary Date of Service Jan 27, 2017. Discharge Summary Admission Date: Jan 25, 2017 at 18:37 Discharge Date: Jan 27, 2017 Discharge Disposition: Home Principal Diagnosis: RIGHT SIDED WEAKNESS/TINGLINESS? HTN Secondary Diagnoses/Problems: (1) History of seizures as a child Procedures: CT HEAD: No acute intracranial findings. CTA NECK: Unremarkable CTA of the neck. No stenosis. No dissection. CTA HEAD: Unremarkable CTA of the head. MRI BRAIN: No acute intracranial findings. Unremarkable unenhanced MRI of the brain. ECHO: Left ventricular systolic function is normal. * Ejection Fraction = 60-65%. * The left atrium is mildly dilated. * Aortic valve sclerosis mild, without significant aortic valvular stenosis. EEG UNREMARKABLE Consultations: NEUROLOGY Medication Reconciliation New Medications: Aspirin (Aspirin EC Low Dose) 81 Mg Ectab 81 MG PO QAM, #30 2 Refills Lisinopril (Zestril) 10 Mg Tab 10 MG PO QAM, #30 TAB 2 Refills Continued Medications: Cyanocobalamin (B12) 1,000 Mcg Tab 500 MCG PO DAILY Multiple Vitamins W/ Minerals (Centrum Silver Adult 50+) 1 Tab Tab 1 TAB PO DAILY Admission Information HPI (per Admitting provider): This is a 71 y/o male with PMHx of remote seizures who presents to the ED c/o neurological sxs that began 2 weeks ago. Pt reports that 2 weeks ago he developed a strange sensation in the R side of his face as well as the R upper and lower extremities. Sxs resolved after about 2 days. Two days ago the same sxs returned and subsequently resolved. Today around 1400, patient developed a "strange sensation" to the R side of his face, R upper and lower extremity weakness along with lip numbness and trouble swallowing. All sxs have resolved except for persistent facial sxs. Pt reports a remote history of grand-mal seizures at 14y/o and 18 y/o. Etiology was unclear and patient was treated with Dilantin for years. He has been off the Dilantin for 15 years and has not had any episodes. Patient denies any seizure-like activity with his recent sxs. Pt has no history of stroke but does have a positive FmHx of stroke. Of note: chart lists Iodine as an allergy however patient states he has an allergy to shellfish and therefore was told he wasn't to have Iodine however he has never received contrast dye. He recently moved to the [facility] from [facility] and plans to establish care with Dr. Andrews. His first apt is scheduled for later this month. Pt denies fever/chills, diaphoresis, visual changes, headache, chest pain, palpitations, SOB, abd pain, N/V, bowel or bladder issues, LE edema, calf pain, lightheadedness/dizziness, facial droop, difficulty ambulating or slurred speech. In the ED, BP was elevated on arrival. Trop negative. CT head is negative. Pt is stable and will be admitted for further evaluation and treatment. Physical Exam (per Admitting): General Appearance: WD/WN, no apparent distress, + pertinent finding (Pt is sitting up in bed with at bedside) Head: normocephalic, atraumatic Eyes: normal inspection, PERRL, EOMI ENT: hearing grossly normal Neck: supple Respiratory/Chest: chest non-tender, lungs clear, normal breath sounds, no respiratory distress Cardiovascular: regular rate, rhythm, no edema, no murmur Abdomen/GI: normal bowel sounds, non tender, soft Back: normal inspection Extremities/Musculoskelatal: normal inspection, no calf tenderness, no pedal edema Neurologic/Psych: fudger II-XII nml as tested, no motor/sensory deficits, alert , normal mood/affect, oriented x 3 Skin: normal color, warm/dry Hospital Course R SIDED WEAKNESS; R/O CVA right sided starnge feeling resolved now BP high on presentation MRI head CTA head and neck unremarkable echo and eeg unremarkable seen by neurology and appreciate inputs ldl66, hdl 44 mostly from uncontrolled htn started on aspirin and lisinopril discharged home to f/u with pcp REMOTE H/O SEIZURE grand-mal seizure age 14 and 18 was on Dilantin for years; stopped taking 15 years ago eeg unremarkable. Discharged home Total time spent on discharge = 35MINUTES This includes examination of the patient, discharge planning, medication reconciliation, and communication with other providers. Discharge Instructions Discharge Instructions Date of Service Jan 27, 2017. Admission Reason for Admission: Neurological Symtoms Discharge Discharge Diagnosis / Problem: tia/hypertensive urgency Discharge Goals Goal(s): Decrease discomfort, Improve function Activity Recommendations Activity Limitations: resume your previous activity . Instructions / Follow-Up Instructions / Follow-Up FOLLOWUP WITH FAMILY DOCTOR Michele Reeves ON January AT 12:50PM. FOLLOWUP BLOOD PRESSURE WITH FAMILY DOCTOR. LAB: BMP IN 1-2 WEEKS AND FOLLOW RESULTS WITH FAMILY DOCTOR. Current Hospital Diet Patient's current hospital diet: AHA Diet (Heart Healthy) Discharge Diet Recommended Diet: AHA Diet (Heart Healthy) Pending Studies Studies pending at discharge: no Laboratory Results Hemoglobin A1c Test 01/25/17 15:32 Range/Units Estimated Average Glucose 120 mg/dl Hemoglobin A1c 5.8 H 4.5-5.6 % Lipid Panel Test 01/26/17 05:34 Range/Units Triglycerides Level 79 0-150 mg/dl Cholesterol Level 126 0-200 mg/dl HDL Cholesterol 44 mg/dl Cholesterol/HDL Ratio 2.9 LDL Cholesterol, Calculated 66 mg/dl Medical Emergencies . Who to Call and When: Medical Emergencies: If at any time you feel your situation is an emergency, please call 911 immediately. . Non-Emergent Contact Non-Emergency issues call your: Primary Care Provider
--- NOTE | 2017-02-07 06:34 | EDITING REQUIRED CODING QUERY ---
CODING CLARIFICATION TIA was documented as a possible diagnosis during this admission. Please clarify below the presence of the TIA: ( ) TIA was present during this admission ( ) TIA was ruled out during this admission ( x ) Other, please clarify: Uncertain. Mostly from uncontrolled HTN Thank you for your assistance, Catie Flores - Head Baker
--- NOTE | 2017-03-05 07:38 | EDITING REQUIRED CODING QUERY ---
SUPPORTING DIAGNOSIS NEEDED Raymond ZAFAR, A supporting diagnosis is required for the test/procedure performed on this patient in order for us to be reimbursed by the patient's insurance. Please provide a supporting diagnosis for the following test/procedure listed below next to the test name along with your signature. *If there is no additional diagnosis for this patient that would support the following test/procedure please document that below next to the test/procedure. Test(s)/Procedure(s) that require a supporting diagnosis: * 93143 GLYCATED HEMOGLOBIN DIAGNOSIS: DATE OF SERVICE: 01/25/17 Provider Signature: Date: Thank you Torsten Davis [facility] Information Management Once completed, please kindly fax back to [phone] For questions please call [phone]
--- NOTE | 2017-03-19 14:23 | EDITING REQUIRED CODING QUERY ---
SUPPORTING DIAGNOSIS NEEDED Dr. Sloan, A supporting diagnosis is required for the test/procedure performed on this patient in order for us to be reimbursed by the patient's insurance. Please provide a supporting diagnosis for the following test/procedure listed below next to the test name along with your signature. *If there is no additional diagnosis for this patient that would support the following test/procedure please document that below next to the test/procedure. Test(s)/Procedure(s) that require a supporting diagnosis: * [id number] GLYCATED HEMOGLOBIN DIAGNOSIS: DATE OF SERVICE: 01/25/17 Provider Signature: ____rule out Diabetes Mellitus Type 2 Date: Thank you Torsten Davis [facility] Information Management Once completed, please kindly fax back to [phone] For questions please call [phone]
== END 2017-01-27 11:58 | disposition home or self-care (01) ==
LOC: ENRESERVTM → ENRESERVDT → C.EDB 15:20 → C.MED 18:37 → EDBEDREQSVC 18:45
PROVIDERS: ADMIT Internal Medicine; ATTEND Internal Medicine
DX: I16.0 Hypertensive urgency (principal); R53.1 Weakness; R20.0 Anesthesia of skin; I10 Essential (primary) hypertension; Z82.3 Family history of stroke

== ENCOUNTER → 2017-06-12 | Outpatient (CLI) | payer OTHER, BC ==
[~2017-06-12] MED LIST: ASPEC81 PO; CYAN100073 PO; LSN10 PO; MULT-845 PO
--- NOTE | 2017-06-13 06:08 | PAP/PSG TECHNICIAN REPORT ---
[facility] Commercial Roofing Estimator Polysomnogram Report Study name: None Report date: 06/13/2017 Study date: 06/12/2017 Referring Physician: Marge BURDICK M.D. Name: RANDOLPH SUAREZ JR. Interpreting Physician: Marlen Burdick M.D. Date of : 1945 Commercial Roofing Estimator: Taras Mac RPSGT. Sex: Male Age: 72 StudyType: PSG Weight: 204 lbs 15.5 inches Height: 72 years, Height 6' 1" Neck Circum: BMI: 26.91 Medications: NONE NOTED Patient History PATIENT WAS DIAGNOSED WITH CHERY IN 1998. HE NEVER STARTED CPAP THERAPY AND LOST AROUND 15LBS. HE HAS HISTORY OF FATIGUE AND SNORING. HE IS HERE TODAY FOR AN EVALUTION FOR CHERY. ESS = 10 RM 7 Parameters Monitored NPSG: E1-M2, E2-M1, Fp1-M2, Fp2-M1, F3-M2, F4-M2, F4-M1, C3-M2, C4-M2, C4-M1, O1-M2, O2-M2, O2-M1, T3-M2, T4-M1, P3-M2, P4-M1, CHIN1, CHIN2, HR, EKG, Legs, PFLOW, SNOR, FLOW, CFLOW, Tidal Volume, THOR, ABDO, SpO2, PLTH, CPRESS, ETCO2 Wave, ETCO2, pH Sleep Architecture Sleep Stages Time at Lights Off 10:23:01 PM STAGES Time (min.) TST (%) Time at Lights On 5:45:01 AM Wake 143.5 -- Total Recording Time (TRT) 442.50 min. N1 9.0 3 Total Sleep Period (TSP) 427.5 min. N2 180.5 60 Total Sleep Time (TST) 298.5min. N3 39.5 13 Awake Time 144.0 min. REM 69.5 23 Wake after Sleep Onset 137.0 min. Sleep Efficiency (SE) 68 % Sleep Onset Latency (BRIDGETT) 6.5 min. Number of Stage 1 Shifts None Awakenings 15 Stage Changes 53 Number of REM periods 5 REM 69.5 23 REM Latency 83.5 min. NREM 229.0 77 Body Position Analysis Supine Right Left Side Prone Vertical Total Sleep Time (min.) 2.9 101.5 197.0 298.50 0.0 0.0 Total Sleep Time (%) 0% 34% 66% 100 0% N/A% Total Sleep Time REM (min.) 0.0 23.5 46.0 None 0.0 0.0 Total Sleep Time NREM (min.) 0.0 78.0 151.0 None 0.0 0.0 Intermittent Wake (min.) 2.9 65.9 74.8 None 0.0 0.0 Total Sleep Period (%) 0% None None None None None Arousals Myoclonus (PLM) * Events Count Index Events Count Index Spontaneous 15 3 Events Awake (PLMW) 92 38.5 Respiratory 0 0.0 Events Asleep w/ Arousal (PLMA) 2 0.4 PLM 2 0 Events Asleep w/o Arousal (PLMS) 249 50.1 Snoring 0 0 Total Asleep 251 50.5 Total 17 3 Total 343 47 Respiratory Analysis * CA OA MA CH H RERA Total Count 0 0 0 0 15 0 15 Index 0.0 0.0 0.0 0 3.0 0 3.0 Mean Duration 0.0 0.0 0.0 0.00 37.2 0.0 37.2 Longest Duration 0.0 0.0 0.0 0.00 0.0 0.0 49.2 Respiratory Event Summary Total Supine ~Supine Right Left Prone REM NREM Apneas Count 0 N/A 0 0 0 N/A 0 0 Index 0.0 N/A 0 0.0 0.0 N/A 0 0 Hypopneas (4% Desat) Count 15 N/A 15 1 14 N/A 15 0 Index 3.0 N/A 3 0.6 4.3 N/A 12.9 0.0 Apneas & All Hypopneas Count 15 N/A 15 1 14 N/A 15 0 Index 3.0 N/A 3 1 4 N/A 12.9 0.0 Respiratory Events (Patrol Inspector+All Hyp+RERA) Count 15 N/A 15 1 14 N/A 15 0 Index 3.0 N/A 3 0.6 4.3 N/A 12.9 0.0 Respiratory Related Arousal Count 0 N/A 0 0 0 N/A 0 0 Index 0.0 N/A 0 0 0 N/A 0 0 Snoring Analysis Supine Right Left Prone REM NREM Total Snore duration 10.3 min Snores count N/A 5 418 N/A 73 350 423 Snore mean duration 1.5 Sec Snores index N/A 3 127 N/A 63.0 91.7 85.0 TST with snoring (%) 3.5% Desaturation Event Summary: Minimum %SpO2 Event Count Mean/Min/Max Duration(sec.) Desaturation Index % Time In Bed > 90 17 58.6 / 11.8 / 119.0 2.4 99.4 86 - 90 0 N/A 0.0 0.6 81 - 85 0 N/A 0.0 0.0 76 - 80 0 N/A 0.0 0.0 71 - 75 0 N/A 0.0 0.0 66 - 70 0 N/A 0.0 0.0 61 - 65 0 N/A 0.0 0.0 56 - 60 0 N/A 0.0 0.0 51 - 55 0 N/A 0.0 0.0 < 50 0 N/A 0.0 0.0 Total REM NREM Awake <50% 0.0 min. 0.0 min. 0.0 min. 0.0 min. 51 - 60% 0.0 min. 0.0 min. 0.0 min. 0.0 min. 61 - 70% 0.0 min. 0.0 min. 0.0 min. 0.0 min. 71 - 80% 0.0 min. 0.0 min. 0.0 min. 0.0 min. 81 - 90% 2.7 min. 1.9 min. 0.7 min. 0.1 min. 91 - 100% 426.5 min. 67.6 min. 228.3 min. 130.6 min. Average 94 93 93 94 Minimum SpO2 89 89 90 90 Desaturation Event Index 2.3 12.9 0.0 0.8 # Desat. Events below 89% N/A N/A N/A N/A Time(%) with Saturation below 89% 0.0 0.0 0.0 0.0 Time(min.) with Saturation below 89% 0.0 0.0 0.0 0.0 Time (mins) REM (mins) NREM (mins) % of TST SpO2 Below 90% 4 4 NN/A 0.1 SpO2 Below 88% 0 0 0 0 Heart Rate Analysis Min (bpm) Max (bpm) Average (bpm) Awake 46 78 56 NREM 46 59 50 REM 45 65 51 Overall 45 65 50 Supplemental O2 Values Minimum O2 level: None Value Start Time End Time Commercial Roofing Estimator Comments Mr. Suarez slept in the right and left positions. No cardiac arrhythmia noted. Leg movements noted. No bruxism noted. Snoring was noted and scored as a 3 on a scale of 1 through 5. (0=no snoring, 5=snoring loud enough to be heard through a closed door or down the yanes way) Mr. Suarez awoke to use the restroom 1 time during the night. Mr. Suarez stated I did not sleep as well as I do when I am in my own bed. The final report will be interpreted and signed by a sleep physician. The completed physician report will then be placed in the patient medical record. Therapy (cm H2O) 0 TIB (min.) 442.0 TST (min.) 298.5 Sleep Onset (min.) 6.5 REM Onset From Sleep (min.) 83.5 Sleep Efficiency % 68 Wakefulness (%) 32 Wakefulness (min.) 144.0 NREM 1 (%) 3 NREM 1 (min.) 9.0 NREM 2 (%) 60 NREM 2 (min.) 180.5 NREM 3 (%) 13 NREM 3 (min.) 39.5 REM (%) 23 REM (min.) 69.5 # Arousals 17 Arousal Index 3 # Snore 423 Snore Index 85.0 AHI 3.0 AHI Supine N/A AHI Non-Supine 3 NREM AHI 0.0 REM AHI 12.9 RDI 3.0 # Obstructive Apnea 0 # Central Apnea 0 # Mixed Apnea 0 # Hypopneas 15 RERAs 0 Total Respiratory Events 16 Time Below SpO2 89% (min.) 0.0 Mean NREM SpO2 (%) 93 Mean REM SpO2 (%) 93 Mean Sleep SpO2 (%) 93 Min NREM SpO2 (%) 90 Min REM SpO2 (%) 89 Position Supine (min.) 2.9 Position Non-supine (min.) 298.5 LM Index Sleep 50.5 LM Index NREM 64.7 LM Index REM 3.5 Mean Heart Rate (bpm) 50 Min Heart Rate (bpm) 45
--- NOTE | 2017-06-24 07:40 | POLYSOMNOGRAPH REPORT ---
REFERRING PERSON: Dr. Kenrick Burdick. TRUCK CLEANER: Taras aMc. Mr. Pool is a 72-year-old male diagnosed with obstructive sleep apnea in 1998. He never started CPAP therapy at that time. Since then, he has lost 15 pounds. He has a history of fatigue and snoring. His [place] sleepiness scale score on the evening of this study is 10. BMI is 26.91. Following the technical and digital specifications of the [employer] (AASM) a standard diagnostic polysomnogram was performed monitoring EEG, EOG, EMG (chin and leg deviations), oxygen saturation, body position, digital video, respiratory effort and airflow. The sleep Stage and event scoring was based on the AASM Manual for the Scoring of Sleep and Associated Events 2007 edition. Apneas are defined as a drop in the peak thermal sensor excursion by >90% of baseline for at least 10 seconds. Hypopneas were scored using the 4% oxygen desaturation rule (4A-[employer]) and a decrease in the nasal pressure excursions by >30% of baseline for at least 10 seconds. Respiratory effort-related arousal (RERA's) is defined as a sequence of breaths lasting at least 10 seconds characterized by increasing respiratory effort or flattening of the nasal pressure waveform leading to an arousal from sleep when the sequence of breaths does not meet criteria for an apnea or hypopnea. Apnea Hypopnea index (AHI) is defined as the number of apneas and hypopneas occurring in an hour of sleep. Respiratory disturbance index (RDI) is defined as the number of apneas, hypopneas, and RERA's occurring in an hour of sleep. Mr. Pool's total sleep period time was 427.5 minutes. Total sleep time was 298.5 minutes. Sleep efficiency was 68%. Latency to sleep onset was 6.5 minutes with wake after sleep onset of 137 minutes. Total non-REM sleep time was 229 minutes. He spent 3% of that time in N1 sleep, 60% in N2 sleep and 13% in N3 sleep. REM latency was normal at 83.5 minutes. Total REM sleep time was 69.5 minutes or 23% of total sleep time. There were 17 cortical arousals from sleep. Fifteen of these arousals were spontaneous and 2 were due to periodic limb movements of sleep. There were 251 periodic limb movements noted on this test. Limb movement index was 50.5. Limb movement with arousal index was 0.4. There were no central obstructive or mixed apneas on this test. There were 15 hypopnea and no RERA. Apnea-hypopnea index was normal at 3.0. REM AHI was 12.9. 423 snoring events were recorded. Total sleep time with snoring was 3.5%. Mean saturation was 94%. There were no desaturations less than 89%. There was no cardiac ectopy noted on this study. Heart rates ranged from a low of 45 beats per minute to a high of 65 beats per minute on this test. IMPRESSION AND PLAN: 72-year-old male without evidence of clinically significant sleep disordered breathing, nocturnal hypoxemia, bruxism, parasomnia or clinically significant periodic limb movements of sleep.
== END | disposition home or self-care (01) ==
LOC: C.NEUR 21:00
PROVIDERS: ATTEND Family Medicine
DX: G47.33 Obstructive sleep apnea (adult) (pediatric) (principal)

== ENCOUNTER → 2018-06-01 | Day surgery (SDC) | payer OTHER, BC ==
[2018-05-26 15:35] VITALS: BMI 27.0
[~2018-06-01] VITALS: Ht 188 cm; Wt 95.5 kg
[~2018-06-01] MED LIST changes: -ASPEC81 PO; -CYAN100073 PO; +FLUO5CRE TOP; +LIDOCAINE HCL 2% 2 ML VIAL (20MG/ML) ONE; +LOSA50TA6 PO; -LSN10 PO; -MULT-845 PO; +PROPOFOL IV EMULSION 10 MG/ML 20 ML VIAL ONE; +SODIUM CHLORIDE 0.9% 500ML 500 ML IV ONE
[2018-06-01 08:34] VITALS: Ht 188 cm; Wt 95.5 kg
--- NOTE | 2018-06-01 09:06 | Endo History and Physical ---
History & Physical Date of Service: Jun 01, 2018. Chief Complaint: screening for colon cancer Referring Physician: DR. MILLER History of Present Illness 72 yo presenting for colonoscopy possible prior history of possible polyp 7 years ago. No gi complaints. Past Surgical History Hx Cardiac Surgery: No Hx Internal Defibrillator: No Hx Pacemaker: No Hx Abdominal Surgery: Yes (appendectomy as child) Hx of Implantable Prosthesis: No Hx Post-Op Nausea and Vomiting: No Hx Cancer Surgery: Yes (MOHS PROCEDURES) Hx Thoracic Surgery: No Hx Orthopedic: No Hx Urinary Tract Surgery: No Family History Colon CA Social History Smoking Status: Never Smoker Hx Substance Use: No Hx Alcohol Use: Yes (MINIMALLY) Allergies Coded Allergies: Shellfish (Verified Allergy, Intermediate, GI SYMPTOMS, 05/26/18) Current Medications Reported Home Medications Medications Dose Route/Sig Max Daily Dose Days Date Category Efudex (Fluorouracil (Topical)) 5 % Cre 1 Appln TOP DIRECTED 14 05/26/18 Reported Cozaar (Losartan Potassium) 50 Mg Tab 50 Mg PO QPM 05/26/18 Reported Vital Signs Weight (Kilograms): 95.45 Height (Feet): 6 Height (Inches): 2 Date Time Temp Pulse Resp B/P (MAP) Pulse Ox O2 Delivery O2 Flow Rate FiO2 06/01/18 08:45 36.2 78 18 146/81 (102) 97 Room Air Physical Exam General Appearance: WD/WN, no apparent distress Respiratory/Chest: Respiratory effort: no dyspnea Auscultation: breath sounds normal, CTA except as noted Cardiovascular: Apical Impulse: not displaced Heart Auscultation: RRR, normal S1, no gallops Abdomen: Bowel Sounds: normal Inspection & Palpation: soft, non-distended, no tenderness, guarding & rebound Assessment and Plan 72 yo presenting for screening colonoscopy
--- NOTE | 2018-06-01 09:45 | GI REPORT ---
Patient Name: Silverio Pool Procedure Date: 06/01/2018 9:11 AM Date of : 1945 Admit Type: Outpatient Age: 72 Gender: Male Attending MD: Destin Reeves MD Procedure: Colonoscopy Providers: Destin Reeves MD Referring MD: Michele Andrews Indications: High risk colon cancer surveillance: Personal history of colonic polyps Medicines: Monitored Anesthesia Care Complications: No immediate complications. Estimated blood loss: None. Estimated Blood Loss: Estimated blood loss: none. Procedure: Pre-Anesthesia Assessment: - Pre-Anesthesia Assessment: - Prior to the procedure, a History and Physical was performed, and patient medications, allergies and sensitivities were reviewed. The patient's tolerance of previous anesthesia was reviewed. Please see Rupture for complete details. - The risks and benefits of the procedure and the sedation options and risks were discussed with the patient. All questions were answered and informed consent was obtained. - Patient identification and proposed procedure were verified prior to the procedure by the physician and the nurse. The procedure was verified in the pre-procedure area in the procedure room. After obtaining informed consent, the endoscope was passed carefully and meticuously under direct vision and only advanced when the lumen was clearly identified, C02 insuflation was utilized throughout the entirity of the procedure. Throughout the procedure, the patient's blood pressure, pulse, and oxygen saturations were monitored continuously. After I obtained informed consent, the scope was passed under direct vision. Throughout the procedure, the patient's blood pressure, pulse, and oxygen saturations were monitored continuously. The scope was introduced through the anus and advanced to the cecum, identified by the appendiceal orifice, ileocecal valve and palpation. The colonoscopy was performed without difficulty. The patient tolerated the procedure well. The quality of the bowel preparation was good. Findings: Multiple small-mouthed diverticula were found in the sigmoid colon. Internal hemorrhoids were found during retroflexion. The terminal ileum appeared normal. The exam was otherwise without abnormality on direct and retroflexion views. Impression: - Diverticulosis in the sigmoid colon. - Internal hemorrhoids. - The examined portion of the ileum was normal. - The examination was otherwise normal on direct and retroflexion views. - No specimens collected. Recommendation: - Written discharge instructions were provided to the patient. - Discharge patient to home (with escort). - Return to referring physician as previously scheduled. - Repeat colonoscopy in 5 years for surveillance. Destin Reeves MD 06/01/2018 9:45:12 AM This report has been signed electronically. Note Initiated On: 06/01/2018 9:11 AM Number of Addenda: 0 I attest to the content of the Intraoperative Record and orders documented therein, exceptions below {[id number]}
--- NOTE | 2018-06-01 10:03 | Discharge Instructions ---
Endoscopy Patient Instructions Date / Procedure(s) Performed Jun 01, 2018. Colonoscopy Allergy Information Coded Allergies: Shellfish (Verified Allergy, Intermediate, GI SYMPTOMS, 05/26/18) Discharge Date / Findings Jun 01, 2018. Findings: Multiple small-mouthed diverticula were found in the sigmoid colon. Internal hemorrhoids were found during retroflexion. The terminal ileum appeared normal. The exam was otherwise without abnormality on direct and retroflexion views. Impression: - Diverticulosis in the sigmoid colon. - Internal hemorrhoids. - The examined portion of the ileum was normal. - The examination was otherwise normal on direct and retroflexion views. - No specimens collected. Recommendation: -Written discharge instructions were provided to the patient. - Discharge patient to home (with escort). - Return to referring physician as previously scheduled. - Repeat colonoscopy in 5 years for surveillance. Provider Instructions Activity Restrictions - No exercising or heavy lifting for 24 hours. - Do not drink alcohol the day of the procedure. - Do not drive a car or operate machinery until the day after the procedure. - Do not make any important decisions or sign important papers in 24 hours after the procedure. Following Day: - Return to full activity which may include returning to work/school. Diet Start your diet with liquids and light foods (jello, soup, juice, toast). Then eat your usual diet if not nauseated. Treatment For Common After Affects For mild abdominal pain, bloating, or excessive gas: - Rest - Eat lightly - Lie on right side Follow-Up Information Follow-up with DR. MILLER as scheduled Anesthesia Information What You Should Know You have had a procedure that required some medicine to reduce anxiety and discomfort. This treatment is called moderate sedation. After receiving the treatment, you may be sleepy, but you will be able to breathe on your own. The effects of the treatment may last for several hours. Follow these instructions along with Activity/Diet recommendations noted above: * Do NOT do anything where dizziness or clumsiness would be dangerous. * Rest quietly at home today, then you can be up and about tomorrow. * Have a responsible person stay with you the rest of today. * You may have had an I.V. today. If so, you may take the dressing off later today. Recommendations Call your doctor if: * Trouble breathing * Continuous vomiting for more than 24 hours * Temperature above 101 degrees * Severe abdominal pain or bloating * Pain not relieved by pain medicine ordered * There is increased drainage or redness from any incision * A large amount of rectal bleeding greater than 2-3 tablespoons. (If you had a polyp/s removed or have hemorrhoids, a small amount of blood - from the rectum is to be expected.) * You have any unanswered questions or concerns. IN THE EVENT OF A SERIOUS EMERGENCY, GO TO THE NEAREST EMERGENCY ROOM Your discharge instructions were prepared by provider Destin Reeves. Patient Instructions Signature Page Silverio Pool Patient (or Guardian) Signature/Date: I have read and understand the instructions given to me by my caregivers. Caregiver/RN/Doctor Signature/Date: The above-named patient and/or guardian has received patient instructions on this date. + Original Patient Signature Page (only) stays with chart. Please make copy for patient.
--- NOTE | 2018-06-01 10:07 | Anesthesiology Progress Note ---
Anesthesia Post Op Note Date & Time Jun 01, 2018 at 10:07 Vital Signs Pain Intensity: 0 Vital Signs Past 12 Hours Date Time Temp Pulse Resp B/P (MAP) Pulse Ox O2 Delivery O2 Flow Rate FiO2 06/01/18 10:04 56 18 129/83 (98) 97 Room Air 06/01/18 09:49 36.6 60 18 120/70 (87) 97 Room Air 06/01/18 08:45 36.2 78 18 146/81 (102) 97 Room Air Notes Mental Status: alert / awake / arousable, participated in evaluation Pt Amnestic to Procedure: Yes Nausea / Vomiting: adequately controlled Pain: adequately controlled Airway Patency, RR, SpO2: stable & adequate BP & HR: stable & adequate Hydration State: stable & adequate Anesthetic Complications: no major complications apparent
[2018-06-01 10:19] VITALS: BP 133/94; PULSE 59; O2SAT 99
== END | disposition home or self-care (01) ==
LOC: C.GI 08:18
PROVIDERS: ATTEND Internal Medicine
DX: Z12.11 Encounter for screening for malignant neoplasm of colon (principal); Z86.010 Personal history of colon polyps; Z80.0 Family history of malignant neoplasm of digestive organs; K57.30 Diverticulosis of large intestine without perforation or abscess without bleeding; K64.8 Other hemorrhoids; G47.33 Obstructive sleep apnea (adult) (pediatric); I10 Essential (primary) hypertension; M19.90 Unspecified osteoarthritis, unspecified site; Z88.8 Allergy status to other drugs, medicaments and biological substances

== ENCOUNTER 2019-07-08 10:21 | Observation (INO) ==
[2019-07-08] MEDS ORDERED: dilTIAZem HCl 5 MG/ML 5 ML VIAL IV STA (11:00)
[2019-07-08] MEDS ORDERED: dilTIAZem HCl 125 MG in DEXTROSE 5% 100 ML IV STA (11:00)
[2019-07-08] MEDS ORDERED: SODIUM CHLORIDE 0.9% 500 ML IV SCH (11:00)
--- NOTE | 2019-07-08 11:18 | XRay Report ---
XR chest 1V portable CLINICAL HISTORY: weakness COMPARISON STUDY: Chest radiograph January 25, 2017. FINDINGS: Lung volumes are normal. Lungs are clear. There is no pneumothorax or pleural effusion. Car diac size is normal. Mediastinal contours are normal. There is no evidence for pulmonary edema. IMPRESSION: No acute cardiopulmonary findings. Electronically signed by: Leo Kerns M.D. 07/08/2019 11:16 AM
[2019-07-08 11:39] LABS: Appearance Urine Clear (Clear); Bilirubin Urine Negative (Negative); Blood Urine Negative (Negative); Color Urine Yellow; Glucose Urine UA Negative (Negative); Ketones Urine Negative (Negative); Leukocyte Esterase Urine Negative (Negative); Nitrite Urine Negative (Negative); Protein Urine Negative (Negative); Specific Gravity Urine 1.018 (1.000-1.030); Urobilinogen Urine Negative (Negative)
[2019-07-08 11:39] LABS: Basophils # (auto) 0.01 K/uL (0-0.2); Basophils % (auto) 0.2 %; Eosinophils # (auto) 0.09 K/uL (0-0.5); Eosinophils % (auto) 1.4 %; Hemoglobin 17.2 g/dL (14.0-18.0); Immature Granulocytes # (auto) 0.01 K/uL (0.00-0.02); Immature Granulocytes % (auto) 0.2 %; Lymphocytes # (auto) 1.53 K/uL (1.2-3.4); Mean Corpuscular Hgb Conc 35.1 g/dL (32-36); Mean Corpuscular Volume 90.4 fL (80-100); Mean Platelet Volume 10.5 fL (7.4-10.4); Monocytes % (auto) 7.5 %; Neutrophils % (auto) 67.7 %; Platelet Count 139 K/uL (130-400); RDW Coefficient of Variation 13.2 % (11.5-14.5); RDW Standard Deviation 43.4 fL (36.4-46.3); Red Blood Count 5.42 M/uL (4.7-6.1); White Blood Count 6.64 K/uL (4.8-10.8)
[2019-07-08 11:50] LABS: INR 1.1 (0.9-1.1); Partial Thromboplastin Time 26.6 Seconds (21.0-31.0); Prothrombin Time 11.3 Seconds (9.0-12.0)
[2019-07-08 11:56] LABS: Alanine Aminotransferase 41 U/L (12-78); Albumin Level 4.3 gm/dl (3.4-5.0); Aspartate Aminotransferase 23 U/L (15-37); BUN Creatinine Ratio 15.5 (10-20); Blood Urea Nitrogen 18 mg/dl (7-18); Calcium 9.4 mg/dl (8.5-10.1); Carbon Dioxide 31 mmol/L (21-32); Chloride 107 mmol/L (98-107); Creatinine Clr Calc Pharmacy 65.6 ml/min; Est GFR (African American) 73.3; Est GFR (Non-African American) 63.2; Glucose 109 mg/dl (70-99); Magnesium 2.1 mg/dl (1.8-2.4); Potassium 4.4 mmol/L (3.5-5.1); Sodium 142 mmol/L (136-145)
[2019-07-08 12:07] LABS: Albumin Globulin Ratio 1.2 (0.9-2); Alkaline Phosphatase 53 U/L (45-117); Bilirubin,Total 0.7 mg/dl (0.2-1); Globulin 3.6 gm/dl (2.5-4.0); Total Protein 7.9 gm/dl (6.4-8.2); Troponin I < 0.015 ng/ml (0-0.045)
--- NOTE | 2019-07-08 13:11 | History & Physical Report ---
Date of Service July 08, 2019 Assessment & Plan (1) Atrial fibrillation with RVR: This is a 74-year-old male with a PMH of hypertension, prediabetes and idiopathic peripheral neuropathy who presents from PCPs office with tachycardia and was found to have A. fib with RVR. -New onset atrial fib at 155 bpm at PCP's office in the setting of Claritin-D use for the past 4 days -No leukocytosis, electrolytes WNL, TSH WNL, CXR and UA unremarkable, troponin normal -Given 15mg diltiazem bolus and started on drip in ED with HR reduced to 70s -Discussed with Dr. Dennis. Will wean off of diltiazem drip and start Lopressor 12.5mg PO Q6H -Initiate IV heparin with plans to discuss predatory animal exterminator anticoagulation tomorrow -Monitor on telemetry, gentle IV fluids, 2D echo -Routine cardiology consult (2) HTN (hypertension): Normotensive -Continue home dose losartan (3) Prediabetes: A1c of 5.7 in January 2019 Carb consistent diet DVT Ppx: IV heparin Code status: FULL PCP: Darryl Dispo: Observation telemetry. Plan to return home once medically stable. Patient seen in collaboration with Dr. Christopher. Please see addendum. History of Present Illness Chief Complaint: Tachycardia, sent from PCP Primary Care Provider: Michele Andrews MD This is a 74-year-old male with a PMH of hypertension, prediabetes and idiopathic peripheral neuropathy who presents from PCPs office with tachycardia. Around 2 AM, patient woke up and felt anxious with associated racing pulse but was able to fall back asleep. Had scheduled PCP appointment with Dr. Andrews today and was noted to be tachycardic with a regular pulse. EKG was performed and showed atrial fib/flutter at 155 bpm. Patient did note some lightheadedness at this point but denied dizziness, presyncope, visual changes, chest pain or shortness of breath. Discussed with [facility] cardiology in clinic who felt that given age and rate, patient should present to ED. Upon arrival in ED, patient noted to have A. fib with RVR at 133 bpm. Was started on diltiazem bolus and drip with reduction of heart rate to high 70s. Currently asymptomatic. Feels anxious, but states he has multiple triggers lately and has felt that way. Had a cold earlier this week and took Mucinex and Claritin-D for 4 days, with last dose yesterday. So no leukocytosis or electrolyte abnormalities. TSH within normal limits. Chest x-ray without acute changes. Urinalysis negative. Denies any fever, chills, headache, nausea, vomiting, abdominal pain, dysuria, diarrhea or constipation. Denies any previous history of diagnosed A. fib, but is felt similar symptoms a few times previously. Allergies Allergy/AdvReac Type Severity Reaction Status Date / Time shellfish derived Allergy Intermediate GI SYMPTOMS Verified 07/08/19 11:36 Home Medications Home Medications Medication Instructions Recorded Confirmed Type guaifenesin [Mucinex] 600 mg PO Q12H PRN 07/08/19 07/08/19 History loratadine-pseudoephedrine 1 tab PO Q12H PRN 07/08/19 07/08/19 History [Claritin-D 12 Hour] losartan 100 mg PO HS 07/08/19 07/08/19 History Past Med/Surg History Medical History Prediabetes (Chronic) Idiopathic neuropathy (Chronic) HTN (hypertension) (Chronic) History of seizures as a child (Resolved) "age 14 and 18; unknown etiology" Surgical History History of appendectomy (Resolved) Family History Other Diabetes Heart disease Stroke Social History Preferred Language: Sinhala Communication Ability: Effective Beliefs That Will Affect Care: None Current Living Situation: Significant Other Other Information That Helps Us Care for You: No Feels Safe at Home: Yes Safety Concerns: Feels Safe At This Time Smoking Status: Never smoker Hx Alcohol Use: Yes Alcohol Intake Frequency: Rarely Hx Substance Use: No Review of Systems Review of Systems: At least ten systems reviewed and negative except as noted in the HPI. Physical Exam Physical Exam: General Appearance: WD/WN, vitals as above, NAD, sitting up in bed, pleasant, conversing easily Head: normocephalic, atraumatic Eyes: normal inspection, PERRL, conjunctivae normal, anicteric sclerae ENT: external ear and nose normal, oropharynx normal Neck: trachea midline, no thyromegaly normal visual inspection Respiratory: normal respiratory effort, lungs clear to auscultation, no wheeze, rales, rhonchi. Normal insp/exp effort, no accessory muscle use Cardiovascular: irregular rate & rhythm, no murmur appreciated, normal peripheral pulses. Vessels: no JVD or carotid bruit Chest: normal inspection of chest Abdomen/GI: normal bowel sounds, soft, nontender, no hepatosplenomegaly Extremities/Musculoskelatal: no cyanosis or clubbing, extremities motor strength 5/5 Neurologic: PERRL, EOMI, accommodation nl, no face palsy, no dysarthria CN's II-XI intact bilaterally and moves all extremities Psychiatric: A+Ox3, euthymic affect Skin: no rashes, normal color, warm/dry Results & Data Vital Signs (Past 12 Hours) Vital Signs Temp Pulse Resp BP Pulse Ox 07/08/19 13:00 96 H 14 145/85 H 99 07/08/19 12:45 79 20 132/94 98 07/08/19 12:30 86 23 115/75 96 07/08/19 12:15 86 20 123/62 96 07/08/19 12:00 78 19 110/68 97 07/08/19 11:45 90 16 114/80 96 07/08/19 11:43 76 18 104/73 96 07/08/19 11:42 92 H 20 126/75 96 07/08/19 11:30 128 H 19 128/77 96 07/08/19 11:28 126 H 20 97 07/08/19 11:26 132 H 21 133/101 H 97 07/08/19 11:18 138 H 23 07/08/19 11:00 122 H 16 07/08/19 10:45 143 H 18 07/08/19 10:41 135 H 15 07/08/19 10:24 36.9 C 87 18 133/88 97 Laboratory Results Short CBC 07/08/19 Range/Units 11:22 WBC 6.64 (4.8-10.8) K/uL Hgb 17.2 (14.0-18.0) g/dL Hct 49.0 (42-52) % Plt Count 139 (130-400) K/uL BMP 07/08/19 11:22 Sodium 142 Potassium 4.4 Chloride 107 Carbon Dioxide 31 BUN 18 Creatinine 1.15 Glucose 109 H Calcium 9.4 Cardiac Enzymes 07/08/19 Range/Units 11:22 Troponin I < 0.015 (0-0.045) ng/ml Liver Function 07/08/19 Range/Units 11:22 Total Bilirubin 0.7 (0.2-1) mg/dl AST 23 (15-37) U/L ALT 41 (12-78) U/L Alkaline Phosphatase 53 (45-117) U/L Albumin 4.3 (3.4-5.0) gm/dl Urine 07/08/19 Range/Units 11:23 Urine Color Yellow Urine Appearance Clear (Clear) Urine pH 5.0 (4.5-7.5) Ur Specific [place] 1.018 (1.000-1.030) Urine Protein Negative (Negative) Urine Glucose (UA) Negative (Negative) Diagnostic Findings CXR: IMPRESSION: No acute cardiopulmonary findings. ECG Rhythm: atrial flutter Supervising Physician Co-Signing Physician Notes I, Dr. Hunter Christopher, have seen and examined the patient with physician expanded duty dental assistant and agree with the assessment and plan as above and would like to comment that on exam general; not in distress Heart: heart rate controlled in the 80s. irregular rhythm (atrial fibrillation) Lungs: clear to auscultation bilaterally Abdomen: soft, nontender, positive bowel sounds Extremities: no edema Neuro: awake and alert and oriented, moves all extremities This is a 74 year old male with new onset ATRIAL FIBRILLATION WITH RAPID VENTRICULAR RESPONSE. Since the intervention with diltiazem drip IV in the ED, patient's heart rate is controlled but still in irregular rhythm. Currently the plan is to transition patient off of diltiazem drip with metoprolol to continue regulating the heart rate. At this time, it is unclear whether this atrial fibrillation is paroxysmal and perhaps the initial trigger of atrial fibrillation may be from use of nasal decongestant on an outpatient basis. Case discussed between cardiology service and medical team and cardiology recommendations of starting ANTICOAGULATION WITH ANTICOAGULATION THERAPY OF HEPARIN IV at this time for stroke risk protection of atrial fibrillation. agree with other assessment and plans as documented by physician expanded duty dental assistant My colleague Dr. Espinal will be following the patient starting on 07/09/19
--- NOTE | 2019-07-08 13:18 | Emergency Department Note ---
Entered by Geoff Jaquez acting as a scribe for Huey Guerrero MD History of Present Illness General Chief complaint: Tachycardia Stated complaint: RAPID HEART RATE Time Seen by Provider: 07/08/19 10:30 Source: patient History of Present Illness Provider complaint: Tachycardia Onset (ago): hour(s) 9 Location: chest Radiation: non-radiation Severity: similar to prior episodes Pain Consistency: + other (Episodic) Relieved By: + none Exacerbated By: + none Associated symptoms: no chest pain and no shortness of breath The patient is a 74 year old male who presents to the Emergency Room with complaints of episodic tachycardia that woke him up earlier this morning around 02:00, about 9 hours ago. Per the nursing note, the patient was seen at Dr. Andrews's office today for a normal physical, however while getting evaluated Dr. Andrews noticed his heart was beating rapidly and irregular. The patient adds that when he woke up with the symptoms around 02:00 he felt very anxious, but denies any chest pain, shortness of breath or nausea at this time. The patient reports that he has had 2 similar episodes before throughout his life, but he never followed up with anyone. The patient notes that nothing seems to make his symptoms better or worse. Moreover, the patient is normally a healthy individual, exercising regularly walking about 25 miles a week with no difficulty. He also just lost 20 pounds through exercise and a gluten free diet. The patient also mentioned that he has been under stress recently due to his son's living conditions. The patient denies any exertional symptoms. He has a history of hypertension, pre-diabetes, a questionable TIA, and neuropathy. Of note, the patient has had an upper respiratory infection and is currently using Mucinex. Home Medications Home Medications Medication Instructions Recorded Confirmed Type guaifenesin [Mucinex] 600 mg PO Q12H PRN 07/08/19 07/08/19 History loratadine-pseudoephedrine 1 tab PO Q12H PRN 07/08/19 07/08/19 History [Claritin-D 12 Hour] losartan 100 mg PO HS 07/08/19 07/08/19 History Allergies Allergy/AdvReac Type Severity Reaction Status Date / Time shellfish derived Allergy Intermediate GI SYMPTOMS Verified 07/08/19 11:36 Past Med/Surg History Medical History Prediabetes (Chronic) Idiopathic neuropathy (Chronic) HTN (hypertension) (Chronic) History of seizures as a child (Resolved) "age 14 and 18; unknown etiology" Surgical History History of appendectomy (Resolved) Family History Other Diabetes Heart disease Stroke Social History Preferred Language: Vietnamese Communication Ability: Effective Beliefs That Will Affect Care: None Current Living Situation: Significant Other Other Information That Helps Us Care for You: No Feels Safe at Home: Yes Safety Concerns: Feels Safe At This Time Smoking Status: Never smoker Hx Alcohol Use: Yes Alcohol Intake Frequency: Rarely Hx Substance Use: No Review of Systems See HPI for pertinent positives & negatives. and A total of 10 systems reviewed and were otherwise negative Physical Exam Vital Signs Vital Signs - 24 hr 07/08/19 10:24 07/08/19 10:41 07/08/19 10:45 Temperature 36.9 C Temperature Source Oral Sepsis Recent Fever Within 48 Hours No Sepsis Action Taken by Nursing No Action Required Pulse Rate 87 135 H 143 H Pulse Rate from SpO2 Sensor Pulse Rhythm Regular Pulse Strength Normal Respiratory Rate 18 15 18 Respiratory Effort / Characteristics Non-Labored Respiratory Depth Normal Respiratory Pattern Regular Blood Pressure 133/88 Blood Pressure Mean 103 Blood Pressure Position Sitting Pulse Oximetry 97 Oxygen Delivery Method Room Air 07/08/19 11:00 07/08/19 11:18 07/08/19 11:26 Temperature Temperature Source Sepsis Recent Fever Within 48 Hours Sepsis Action Taken by Nursing Pulse Rate 122 H 138 H 132 H Pulse Rate from SpO2 Sensor 98 H Pulse Rhythm Pulse Strength Respiratory Rate 16 23 21 Respiratory Effort / Characteristics Respiratory Depth Respiratory Pattern Blood Pressure 133/101 H Blood Pressure Mean 111 Blood Pressure Position Pulse Oximetry 97 Oxygen Delivery Method 07/08/19 11:28 07/08/19 11:30 07/08/19 11:42 Temperature Temperature Source Sepsis Recent Fever Within 48 Hours Sepsis Action Taken by Nursing Pulse Rate 126 H 128 H 92 H Pulse Rate from SpO2 Sensor 91 H 80 Pulse Rhythm Regular Pulse Strength Respiratory Rate 20 19 20 Respiratory Effort / Characteristics Respiratory Depth Respiratory Pattern Blood Pressure 128/77 126/75 Blood Pressure Mean 94 92 Blood Pressure Position Pulse Oximetry 97 96 96 Oxygen Delivery Method Room Air 07/08/19 11:43 07/08/19 11:45 07/08/19 12:00 Temperature Temperature Source Sepsis Recent Fever Within 48 Hours Sepsis Action Taken by Nursing Pulse Rate 76 90 78 Pulse Rate from SpO2 Sensor 81 88 72 Pulse Rhythm Pulse Strength Respiratory Rate 18 16 19 Respiratory Effort / Characteristics Respiratory Depth Respiratory Pattern Blood Pressure 104/73 114/80 110/68 Blood Pressure Mean 83 91 82 Blood Pressure Position Pulse Oximetry 96 96 97 Oxygen Delivery Method 07/08/19 12:15 07/08/19 12:30 07/08/19 12:45 Temperature Temperature Source Sepsis Recent Fever Within 48 Hours Sepsis Action Taken by Nursing Pulse Rate 86 86 79 Pulse Rate from SpO2 Sensor 85 81 78 Pulse Rhythm Pulse Strength Respiratory Rate 20 23 20 Respiratory Effort / Characteristics Respiratory Depth Respiratory Pattern Blood Pressure 123/62 115/75 132/94 Blood Pressure Mean 82 88 106 Blood Pressure Position Pulse Oximetry 96 96 98 Oxygen Delivery Method 07/08/19 13:00 07/08/19 13:24 Temperature Temperature Source Sepsis Recent Fever Within 48 Hours Sepsis Action Taken by Nursing Pulse Rate 96 H Pulse Rate from SpO2 Sensor 79 Pulse Rhythm Pulse Strength Respiratory Rate 14 Respiratory Effort / Characteristics Non-Labored Spontaneous Respiratory Depth Normal Respiratory Pattern Regular Blood Pressure 145/85 H Blood Pressure Mean 105 Blood Pressure Position Pulse Oximetry 99 Oxygen Delivery Method Room Air GENERAL: Patient is in no acute distress. HEENT: No acute trauma, normocephalic atraumatic, mucous membranes moist, no nasal congestion, no scleral icterus. NECK: No stridor, no adenopathy, no meningismus, trachea is midline. LUNGS: Clear to auscultation bilaterally, no wheeze, no rhonchi, breath sounds equal. HEART: Tachycardic rate and irregular rhythm, no murmurs. ABDOMEN: Soft, nontender, bowel sounds positive, no hernias, no peritonitis. EXTREMITIES: No cyanosis or edema, full range of motion of all the joints without pain or difficulty, no signs for acute trauma. NEUROLOGIC: Oriented x 3, no acute motor or sensory deficits, no focal weakness. SKIN: No rash, no jaundice, no diaphoresis. Course 1035: Past medical records reviewed. The patient was evaluated in room B08 by the medical student working with me, and a complete history and physical examination were performed. I then performed my own assessment. 1201: I reevaluated the patient and updated him on results. We also discussed the treatment plan and the patient fully agreed. 1215: I spoke to [facility] about the patient's case. They are going to accept the patient for further evaluation. Consultations Consultation #1: I spoke to [facility] Liu [facility] under Dr. Ashwin Muñoz about the patient's case. They are going to accept the patient for further evaluation. Time: 12:15 Administered Medications Diltiazem HCl 125 mg/ Dextrose 125 mls @ 5 mls/hr IV .Q24H FITZ; Protocol Stop: 08/07/19 14:31 Last Admin: 07/08/19 15:15 Dose: 5 mg/hr, 5 mls/hr Documented by: [id number] Cosigned by: [id number] Heparin Sodium/Dextrose (Heparin Sodium/Dextrose) 25,000 units in 500 mls @ 30 mls/hr IV .B25T45A FITZ; Protocol Stop: 08/07/19 14:31 Last Admin: 07/08/19 15:10 Dose: 1,500 units/hr, 30 mls/hr Documented by: [id number] Cosigned by: [id number] Sodium Chloride (Nss 1000ml) 1,000 mls @ 90 mls/hr IV .Q11H7M FITZ Stop: 07/09/19 01:38 Last Admin: 07/08/19 14:43 Dose: 90 mls/hr Documented by: [id number] Discontinued Medications Diltiazem HCl (Cardizem) 15 mg IV NOW STA Stop: 07/08/19 11:01 Last Admin: 07/08/19 11:36 Dose: 15 mg Documented by: [id number] Cosigned by: [id number] Heparin Sodium/Dextrose () 1 ea IV NOW STA; Protocol Stop: 07/08/19 14:33 Last Admin: 07/08/19 15:11 Dose: 1 ea Documented by: [id number] Sodium Chloride (Nss) 500 mls @ 999 mls/hr IV .Q31M FITZ Stop: 07/08/19 11:30 Last Infusion: 07/08/19 11:59 Dose: 0 mls/hr Documented by: [id number] Admin: 07/08/19 11:27 Dose: 999 mls/hr Documented by: [id number] Diltiazem HCl 125 mg/ Dextrose 125 mls @ 0 mls/hr IV .Q0M STA; Protocol Stop: 07/08/19 11:01 Last Admin: 07/08/19 11:41 Dose: 5 mg/hr, 5 mls/hr Documented by: [id number] Cosigned by: [id number] Heparin Sodium (Porcine) 7,000 (units/ Syringe) 7 mls @ 10 mls/min IV TODAY@1500 ONE Stop: 07/08/19 15:01 Last Admin: 07/08/19 15:10 Dose: 10 mls/min Documented by: [id number] Cosigned by: [id number] Metoprolol Tartrate (Lopressor) 12.5 mg PO QAM FITZ Stop: 08/07/19 13:29 Last Admin: 07/08/19 15:17 Dose: Not Given Documented by: [id number] Medical Decision Making Differential Diagnosis Differential Diagnosis includes: Afib, atrial flutter, SVT, electrolyte abnormality, anemia, thyroid disorder, and PR, amongst others. Medical Records Attestation: I reviewed the patient's medical records. Home Medications Current Medication List: was personally reviewed by me Laboratory Data Attestation: I reviewed the patient's lab results. Result diagrams: 07/08/19 11:22 07/08/19 11:22 Lab Results 07/08/19 07/08/19 07/08/19 Range/Units 11:22 11:22 11:22 WBC 6.64 (4.8-10.8) K/uL RBC 5.42 (4.7-6.1) M/uL Hgb 17.2 (14.0-18.0) g/dL Hct 49.0 (42-52) % MCV 90.4 (80-100) fL MCH 31.7 (25-34) pg MCHC 35.1 (32-36) g/dL RDW Std Deviation 43.4 (36.4-46.3) fL RDW Coeff of Mp 13.2 (11.5-14.5) % Plt Count 139 (130-400) K/uL MPV 10.5 H (7.4-10.4) fL Immature Gran % (Auto) 0.2 % Neut % (Auto) 67.7 % Lymph % (Auto) 23.0 % Calloway % (Auto) 7.5 % Eos % (Auto) 1.4 % Baso % (Auto) 0.2 % Immature Gran # (Auto) 0.01 (0.00-0.02) K/uL Neut # (Auto) 4.50 (1.4-6.5) K/uL Lymph # (Auto) 1.53 (1.2-3.4) K/uL Calloway # (Auto) 0.50 (0.11-0.59) K/uL Eos # (Auto) 0.09 (0-0.5) K/uL Baso # (Auto) 0.01 (0-0.2) K/uL PT 11.3 (9.0-12.0) Seconds INR 1.1 (0.9-1.1) APTT 26.6 (21.0-31.0) Seconds PTT Ratio 1.0 Sodium 142 (136-145) mmol/L Potassium 4.4 (3.5-5.1) mmol/L Chloride 107 (98-107) mmol/L Carbon Dioxide 31 (21-32) mmol/L Anion Gap 5.0 (3-11) BUN 18 (7-18) mg/dl Creatinine 1.15 (0.6-1.4) mg/dl Est Cr Clr Drug Dosing 65.6 ml/min Est GFR ( Amer) 73.3 Est GFR (Non-Af Amer) 63.2 BUN/Creatinine Ratio 15.5 (10-20) Glucose 109 H (70-99) mg/dl Calcium 9.4 (8.5-10.1) mg/dl Magnesium 2.1 (1.8-2.4) mg/dl Total Bilirubin 0.7 (0.2-1) mg/dl AST 23 (15-37) U/L ALT 41 (12-78) U/L Alkaline Phosphatase 53 (45-117) U/L Troponin I < 0.015 (0-0.045) ng/ml Total Protein 7.9 (6.4-8.2) gm/dl Albumin 4.3 (3.4-5.0) gm/dl Globulin 3.6 (2.5-4.0) gm/dl Albumin/Globulin Ratio 1.2 (0.9-2) TSH 2.770 (0.300-4.500) uIu/ml Urine Color Urine Appearance (Clear) Urine pH (4.5-7.5) Ur Specific Bloomer (1.000-1.030) Urine Protein (Negative) Urine Glucose (UA) (Negative) Urine Ketones (Negative) Urine Blood (Negative) Urine Nitrite (Negative) Urine Bilirubin (Negative) Urine Urobilinogen (Negative) Ur Leukocyte Esterase (Negative) 07/08/19 Range/Units 11:23 WBC (4.8-10.8) K/uL RBC (4.7-6.1) M/uL Hgb (14.0-18.0) g/dL Hct (42-52) % MCV (80-100) fL MCH (25-34) pg MCHC (32-36) g/dL RDW Std Deviation (36.4-46.3) fL RDW Coeff of Mp (11.5-14.5) % Plt Count (130-400) K/uL MPV (7.4-10.4) fL Immature Gran % (Auto) % Neut % (Auto) % Lymph % (Auto) % Calloway % (Auto) % Eos % (Auto) % Baso % (Auto) % Immature Gran # (Auto) (0.00-0.02) K/uL Neut # (Auto) (1.4-6.5) K/uL Lymph # (Auto) (1.2-3.4) K/uL Calloway # (Auto) (0.11-0.59) K/uL Eos # (Auto) (0-0.5) K/uL Baso # (Auto) (0-0.2) K/uL PT (9.0-12.0) Seconds INR (0.9-1.1) APTT (21.0-31.0) Seconds PTT Ratio Sodium (136-145) mmol/L Potassium (3.5-5.1) mmol/L Chloride (98-107) mmol/L Carbon Dioxide (21-32) mmol/L Anion Gap (3-11) BUN (7-18) mg/dl Creatinine (0.6-1.4) mg/dl Est Cr Clr Drug Dosing ml/min Est GFR ( Amer) Est GFR (Non-Af Amer) BUN/Creatinine Ratio (10-20) Glucose (70-99) mg/dl Calcium (8.5-10.1) mg/dl Magnesium (1.8-2.4) mg/dl Total Bilirubin (0.2-1) mg/dl AST (15-37) U/L ALT (12-78) U/L Alkaline Phosphatase (45-117) U/L Troponin I (0-0.045) ng/ml Total Protein (6.4-8.2) gm/dl Albumin (3.4-5.0) gm/dl Globulin (2.5-4.0) gm/dl Albumin/Globulin Ratio (0.9-2) TSH (0.300-4.500) uIu/ml Urine Color Yellow Urine Appearance Clear (Clear) Urine pH 5.0 (4.5-7.5) Ur Specific Bloomer 1.018 (1.000-1.030) Urine Protein Negative (Negative) Urine Glucose (UA) Negative (Negative) Urine Ketones Negative (Negative) Urine Blood Negative (Negative) Urine Nitrite Negative (Negative) Urine Bilirubin Negative (Negative) Urine Urobilinogen Negative (Negative) Ur Leukocyte Esterase Negative (Negative) Imaging Data Radiologist's Impression: Radiology results as stated below per my review and the radiologist's interpretation: XR chest 1V portable CLINICAL HISTORY: weakness COMPARISON STUDY: Chest radiograph January 25, 2017. FINDINGS: Lung volumes are normal. Lungs are clear. There is no pneumothorax or pleural effusion. Cardiac size is normal. Mediastinal contours are normal. There is no evidence for pulmonary edema. IMPRESSION: No acute cardiopulmonary findings. Electronically signed by: Leo Kerns M.D. 07/08/2019 11:16 AM ECG Data Attestation: I personally reviewed and interpreted this ECG as follows: Indication: tachycardia Rate (beats per minute): 133 Rhythm: atrial fibrillation Findings: + other (Non-specific block, QTC of 407) and + nonspecific-ST abn; no ST depression and no ST elevation Blood Pressure Blood Pressure Findings: Normal blood pressure Blood Pressure Disposition: further management by hospitalist [facility] Narrative There is no leukocytosis or concerning anemia. No coagulopathy. No significant electrolyte abnormality or kidney failure. No worrisome liver enzyme elevation. The patient appeared to be in a euthyroid state. Urinalysis did not show infection or hematuria. Chest x-ray did not show pneumonia or CHF. EKG shows a rapid A. fib, no acute ischemia. Cardiac enzyme testing x1 is not consistent with acute cardiac injury. Patient received a 500 cc saline bolus. He was given a bolus of IV diltiazem and placed on a diltiazem drip. The drip rate was titrated to control his heart rate. The patient is doing well, heart rate is now in the 80s, he is still in atrial fibrillation though. A hospital stay is warranted. Further cardiac work-up is required. Patient may need anticoagulation or further rate control. Cardioversion may be an option. I did speak to the patient, I talked with case management. The on-call hospitalist was consulted. Impression & Plan Atrial fibrillation, rapid, Tachycardia Critical Care Time Critical Care Time: Yes Total Critical Care Time: 36 I have personally spent greater than 36 minutes of critical care time in the direct management of this patient. This includes bedside care, interpretation of diagnostic studies, and testing, discussion with consultants, patient, and family members, and other required patient management activities. This 36 minutes is in excess of all separately billable procedures. Discharge Plan Visit Data *Final* Discharge Date/Time: 07/08/19 14:07 Chief Complaint: Tachycardia Stated Complaint: RAPID HEART RATE ED Provider: Huey Guerrero Discharge Problem: Atrial fibrillation, rapid, Tachycardia Patient Disposition: Admitted As Inpatient Discharge Instructions Interventions: ED Discharge Assessment Last Done: 07/08/19 14:07 The scribe's documentation has been prepared under my direction and personally reviewed by me in its entirety. I confirm that the note above accurately reflects all work, treatment, procedures, and medical decision making performed by me.
[2019-07-08] MEDS ORDERED: METOPROLOL TARTRATE 25 MG TAB PO SCH ×2 (13:30→18:00)
[2019-07-08] MEDS ORDERED: dilTIAZem HCl 125 MG in DEXTROSE 5% 100 ML IV SCH (14:32)
[2019-07-08] MEDS ORDERED: POLYETHYLENE (MIRALAX) 17 GM PACK PO PRN (14:32)
[2019-07-08] MEDS ORDERED: SODIUM CHLORIDE 0.9% 1000ML 1,000 ML IV SCH (14:32)
[2019-07-08] MEDS ORDERED: ACETAMINOPHEN 325 MG TAB PO PRN (14:32)
[2019-07-08] MEDS ORDERED: HEPARIN IV BOLUS 7,000 UNITS in SYRINGE 0 ML IV ONE (15:00)
[2019-07-08] MEDS: HEPARIN SODIUM/DEXTROSE 25,000 UNITS/500 ML BAG IV SCH (15:10)
[2019-07-08] MEDS: METOPROLOL TARTRATE 25 MG TAB PO SCH ×2 (16:15→23:31)
[2019-07-08] MEDS: LOSARTAN POTASSIUM 50 MG TAB PO SCH (21:16)
[2019-07-08 21:28] LABS: Partial Thromboplastin Ratio 4.9
[2019-07-08 21:34] LABS: Partial Thromboplastin Time 132.7 Seconds (21.0-31.0)
--- NOTE | 2019-07-08 22:23 | Consultation Report ---
DATE OF CONSULTATION: 07/08/2019 INPATIENT CARDIOLOGY CONSULTATION CONSULTATION REQUESTED BY: Dr. Christopher. REASON FOR CONSULTATION: New-onset atrial fibrillation. HISTORY OF PRESENT ILLNESS: Mr. Pool is a very pleasant 74-year-old gentleman who presented to [facility] Emergency Department from his primary care physician, Dr. Andrews's office today after being found to be in atrial fibrillation. The patient states he has been in his normal state of health lately except for head cold and he presented for routine followup with Dr. Andrews today. Upon evaluation, he was feeling well, but found to be tachycardic. EKG was performed which found AFib with RVR and the patient was directed to [facility] for further evaluation. Looking back, he states that if anything last night he woke up about 2:00 a.m. to go to the bathroom, he might have felt his heart racing a little bit, but otherwise has been feeling well and has had no cardiac complaints of chest pain, shortness of breath, palpitations, lightheadedness, dizziness, or syncope. He is very active, walking approximately 25 miles per week, and he has not noticed himself slowing down at all recently. PAST SURGICAL HISTORY: 1. Appendectomy. 2. Colonoscopy. 3. Mohs surgery. MEDICAL ILLNESSES: 1. Hypertension. 2. Idiopathic neuropathy. 3. Prediabetes. 4. Thrombocytopenia. 5. History of TIA. FAMILY HISTORY: Noncontributory. SOCIAL HISTORY: Denies any alcohol, tobacco or recreational drug use. He is not . He does have a significant other. He has 2 children and 6 grandchildren. 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 Again, he walks on approximately an hour and a half a day. REVIEW OF SYSTEMS: As per HPI, all other review of systems reviewed and negative at this time. ALLERGIES: SHELLFISH. MEDICATIONS AN OUTPATIENT: Losartan 100 mg daily. PHYSICAL EXAMINATION: VITALS: Temperature 36.8, pulse 77, respiratory rate 12, blood pressure 151/83. GENERAL: Awake, alert, oriented x3 in no acute distress. HEENT: Normocephalic, atraumatic. Pupils equal, round, reactive to light and accommodation. Extraocular muscles intact. Anicteric sclerae. Moist mucous membranes. NECK: No JVD, no bruit. CARDIOVASCULAR: Irregularly irregular, unable to appreciate any murmurs, rubs or gallops. PULMONARY: Clear to auscultation bilaterally. No rales, rhonchi, or wheezing. ABDOMEN: Bowel sounds x4, soft. No rebound, guarding, or tenderness. No organomegaly. EXTREMITIES: No clubbing, cyanosis or edema. +2 pedal pulses bilaterally. SKIN: Warm and dry. TEST RESULTS: A 12-lead EKG performed in the Emergency Department independently reviewed at this time shows atrial fibrillation with rapid ventricular response at 133 beats per minute. IMPRESSION: 1. New onset atrial fibrillation, asymptomatic, unknown duration. 2. History of prediabetes. 3. History of hypertension. 4. History of transient ischemic attack. 5. Borderline thrombocytopenia. RECOMMENDATIONS: It was my pleasure to see Mr. Pool in consultation today. From a cardiac standpoint, the pathophysiology of atrial fibrillation along with rate versus rhythm control strategies were discussed with him at great length. The pros and cons of each were also discussed. He states he is not ready to make a decision at this time which is understandable; however, he is leaning towards rate control therapy at this time. So for now, he will be made n.p.o. after midnight in case he would like to go after rhythm control strategy, which would include transesophageal echocardiographic guided cardioversion; however, again no final decision has been made yet. His heart rate has improved with oral metoprolol and that will be continued. He will be continued on heparin overnight and in terms of long-term anticoagulant again lengthy discussion was had and he is leaning towards Eliquis at this time.
[2019-07-08 23:01] LABS: Partial Thromboplastin Ratio 3.8
[2019-07-08 23:05] LABS: Partial Thromboplastin Time 102.9 Seconds (21.0-31.0)
[2019-07-09 01:38] LABS: Partial Thromboplastin Ratio 1.4; Partial Thromboplastin Time 38.7 Seconds (21.0-31.0)
[2019-07-09] MEDS ORDERED: HEPARIN SOD (PORCINE) 1000 UNIT/ML 10 ML VIAL IV ONE (01:44)
[2019-07-09] MEDS ORDERED: HEPARIN IV BOLUS 7,000 UNITS in SYRINGE 0 ML IV ONE (02:45)
[2019-07-09] MEDS: METOPROLOL TARTRATE 25 MG TAB PO SCH ×2 (05:59→21:07)
[2019-07-09 06:27] LABS: Hematocrit (blood only) 45.1 % (42-52); Hemoglobin 15.7 g/dL (14.0-18.0); Mean Corpuscular Hgb Conc 34.8 g/dL (32-36); Mean Corpuscular Volume 90.2 fL (80-100); Platelet Count 134 K/uL (130-400); RDW Coefficient of Variation 13.2 % (11.5-14.5); RDW Standard Deviation 43.5 fL (36.4-46.3); White Blood Count 6.11 K/uL (4.8-10.8)
[2019-07-09 06:57] LABS: BUN Creatinine Ratio 16.3 (10-20); Calcium 8.3 mg/dl (8.5-10.1); Creatinine Clr Calc Pharmacy 71.9 ml/min; Est GFR (African American) 81.8; Est GFR (Non-African American) 70.6; Potassium 3.8 mmol/L (3.5-5.1)
[2019-07-09 08:27] LABS: Partial Thromboplastin Ratio 2.2
[2019-07-09 08:33] LABS: Partial Thromboplastin Time 60.7 Seconds (21.0-31.0)
[2019-07-09] MEDS ORDERED: METOPROLOL TARTRATE 25 MG TAB PO SCH (09:00)
[2019-07-09] MEDS: HEPARIN SODIUM/DEXTROSE 25,000 UNITS/500 ML BAG IV SCH (09:46)
[2019-07-09] MEDS ORDERED: fentaNYL citrate 100 MCG/2 ML VIAL ONE (11:18)
[2019-07-09] MEDS ORDERED: MIDAZOLAM HCL 1 MG/ML 2ML VIAL ONE (11:18)
[2019-07-09] MEDS ORDERED: BENZOCAIN/TETRACA/BUTAM SPRAY 200 APPLN/20 GM SPRY EXT ONE (11:20)
[2019-07-09] MEDS ORDERED: CANNULA ONE (11:21)
--- NOTE | 2019-07-09 11:36 | Cardiology Progress Note ---
Date of Service July 09, 2019 Assessment & Plan (1) Atrial fibrillation with RVR: remains asymptomatic has opted for rhythm control strategy will proceed with WIL guided cardioversion risks, benefits and alternatives discussed at great length pt is accepting of risks and wishes to proceed will hold heparin now and likely start Eliquis after cardioversion. Subjective Pt seen and examined, states that he feels well. No complaints overnight. Denies cp, sob, palpitations, lightheadedness or dizziness. tele reviewed: atrial fibrillation with controlled rates 80's-90's. Review of Systems Review of Systems: All systems reviewed & are unremarkable except as noted in HPI & below Physical Exam Physical Exam: General: Awake, alert and oriented x 3. No acute distress. HEENT: Normocephalic, atraumatic. Pupils equal, round and reactive to light and accommodation. Extraocular muscles are intact. Anicteric sclera. Moist mucous membranes. Neck: No JVD. No bruit. Cardiovascular: irregularly irregular, unable to appreciate murmur, rub or gallop. Pulmonary: Clear to auscultation bilaterally. No rales, rhonchi, or wheezing. Abdomen: Bowel sounds x 4, soft. No rebound, guarding or tenderness. No organomegaly. Extremities: No clubbing, cyanosis or edema. +2 pedal pulses bilaterally. Skin: Warm and dry. Results & Data Vital Signs (Past 12 Hours) Vital Signs Temp Pulse Resp BP Pulse Ox 07/09/19 07:56 36.8 C 84 20 118/77 97 07/09/19 03:40 36.7 C 86 16 107/58 L 97 07/08/19 23:39 36.6 C 74 18 120/81 94
--- NOTE | 2019-07-09 11:36 | Pre Anesthesia Assessment ---
Date of Service July 09, 2019 Pre Sedation Assessment Vital Signs Temp Pulse Pulse Resp BP BP Pulse Ox 07/09/19 07:56 36.8 C 84 20 118/77 97 07/09/19 03:40 36.7 C 86 16 107/58 L 97 07/08/19 23:39 36.6 C 74 18 120/81 94 07/08/19 19:38 36.8 C 80 18 140/71 97 07/08/19 15:55 36.8 C 77 17 151/83 H 97 07/08/19 14:28 36.6 C 82 18 109/72 97 07/08/19 14:07 88 16 135/81 97 07/08/19 13:00 96 H 14 145/85 H 99 07/08/19 12:45 79 20 132/94 98 07/08/19 12:30 86 23 115/75 96 07/08/19 12:15 86 20 123/62 96 07/08/19 12:00 78 19 110/68 97 07/08/19 11:45 90 16 114/80 96 07/08/19 11:43 76 18 104/73 96 07/08/19 11:42 92 H 20 126/75 96 Pre-Sedation Airway Assessment Smoking Status: Never smoker Notes The planned sedation has been discussed with the patient. Informed Consent was obtained. I have identified the patient, determined the appropriateness of sedation and have assessed the patient immediately prior to the procedure. All medicine(s) and interventions are by my order.
[2019-07-09] MEDS ORDERED: GLYCOPYRROLATE 0.2 MG/ML VIAL ONE (11:43)
--- NOTE | 2019-07-09 12:07 | Post Anesthesia Assessment ---
Date of Service July 09, 2019 Post Sedation Assessment Vital Signs Temp Pulse Pulse Resp BP BP Pulse Ox 07/09/19 07:56 36.8 C 84 20 118/77 97 07/09/19 03:40 36.7 C 86 16 107/58 L 97 07/08/19 23:39 36.6 C 74 18 120/81 94 07/08/19 19:38 36.8 C 80 18 140/71 97 07/08/19 15:55 36.8 C 77 17 151/83 H 97 07/08/19 14:28 36.6 C 82 18 109/72 97 07/08/19 14:07 88 16 135/81 97 07/08/19 13:00 96 H 14 145/85 H 99 07/08/19 12:45 79 20 132/94 98 07/08/19 12:30 86 23 115/75 96 07/08/19 12:15 86 20 123/62 96 Post Sedation Plan On clinical assessment, the patient appears to have tolerated the sedation without complications. Patient is recovering as anticipated. Patient will continue to be monitored by nursing and may be discharged when sedation discharge criteria are met per below protocol. Upon Completions of procedure and additional 15 minutes continue every 5 minute vital signs and the P.A.R. score; then discharge to a Phase I or Fast Track to Phase II per the following guidelines: * Discharge Patient to appropriate Phase II area if PAR is 8 or greater or return to pre- procedure baseline. The post - procedure orders will be as directed. * If PAR score is less than 8 or not return to pre-procedure baseline then patient will follow Phase I monitoring till PAR is reached for Phase II. The Phase I may be done in procedure room or may call to secure a Phase I area. * If naloxone or flumazenil are used for reversal, hold in Phase I for continued monitoring from when last reversal dose was given for a minimum of 60 minutes or longer pending the nurse and/or physician discretion of patient condition before discharge to Phase II. Please call the Sedation Physician to re-evaluate and complete post-note for discharge to Phase II area. Do NOT discharge from procedure sedation or Phase 1 until post- sedation evaluation note is complete by procedure /sedation MD Sedation Discharge Instructions to be given to the patient at discharge to home.
--- NOTE | 2019-07-09 12:10 | Operative Report ---
Post Operative Report Pre & Post Diagnosis Operation Date: 07/09/19 11:30 <No data on this case meets the specified criteria> Procedure Operation Date: 07/09/19 11:30 <No data on this case meets the specified criteria> Surgeon Andre Dennis DO Meters Superintendent Harlan HICKS Estimated Blood Loss 0 Findings Consistent with Post-Op Diagnosis Specimens none Description of Procedure informed consent obtained pt prepped adequate moderate sedation achieved with a total of Versed 3 mg and Fentanyl 75 mcg WIL performed, good visualization of left atrial appendage, no thrombus present WIL completed Pt repositioned 360J of DC synchronized energy delivered with successful cardiovesion to sinus pt tolerated well to be recovered per protocol and return to room 207 no complications start time:1147 stop time: 1207 I attest to the content of the Intraoperative Record and any orders documented therein. Any exceptions are noted below.
--- NOTE | 2019-07-09 12:24 | Hospitalist Progress Note ---
Date of Service July 09, 2019 Assessment & Plan (1) Atrial fibrillation with RVR: New Onset of Afib Was sent to the ED after found to be in AFIB with RVR on EKG HR 155 bpm at PCP's office Denies any symptoms, he said that he just felt funny Received 15mg diltiazem bolus and was starting on cardizem drip in ED with HR reduced to 70s Tele monitor this morning showed Afib Troponin negative on admission ECHO showed no wall motion abnormality with EF btw 60-65 % cardiology on board Cardizem drip was discontinued and was starting on metoprolol On IV heparin drip now Plan for WIL and cardioversion today Will consider to discontinue heparin drip and transition to possible Eliquis (Will check for coverage) (2) HTN (hypertension): BP stable Continue home dose losartan (3) Prediabetes: A1c of 5.7 in January 2019 Carb consistent diet DVT Ppx: IV heparin Code status: FULL Disposition Continue monitor in telemetry Subjective Pt was seen and examined Lying in bed with no distress Pt said that he does not have any palpitation or flutter in his heart His heart increased to 160 this morning while using the bathroom Denies any chest pain, palpitation, dizziness and SOB Physical Exam Physical Exam: General- No acute distress Head- atraumatic Eyes- PERRL, EOMI, ENT- oropharynx clear Neck- supple, no JVD Lungs- clear to auscultation Heart- irregular rhythm; no murmur Abdomen- normal bowel sounds, soft, nontender Extremities- no calf tenderness Neuro- alert, oriented x 3; PERRL, EOMI; no facial palsy; no dysarthria Skin- warm & dry Results & Data Vital Signs (Past 12 Hours) Vital Signs Temp Pulse Pulse Resp BP Pulse Ox 07/09/19 12:15 80 18 98 07/09/19 12:07 80 18 98 07/09/19 12:02 165 H 18 99 07/09/19 11:57 168 H 18 152/88 H 99 07/09/19 11:52 160 H 18 200/160 H 99 07/09/19 11:47 144 H 18 122/82 99 07/09/19 07:56 36.8 C 84 20 118/77 97 07/09/19 03:40 36.7 C 86 16 107/58 L 97
--- NOTE | 2019-07-09 13:55 | Cardiology Progress Note ---
Date of Service July 09, 2019 Assessment & Plan (1) Atrial fibrillation with RVR: remains asymptomatic has opted for rhythm control strategy will proceed with WIL guided cardioversion risks, benefits and alternatives discussed at great length pt is accepting of risks and wishes to proceed will hold heparin now and likely start Eliquis after cardioversion. Subjective Pt seen and examined, states that he feels well s/p cardioversion. Denies cp, sob, palpitations, lightheadedness or dizziness. tele reviewed: sinus rhythm without arrhythmia Review of Systems Review of Systems: All systems reviewed & are unremarkable except as noted in HPI & below Physical Exam Physical Exam: General: Awake, alert and oriented x 3. No acute distress. HEENT: Normocephalic, atraumatic. Pupils equal, round and reactive to light and accommodation. Extraocular muscles are intact. Anicteric sclera. Moist mucous membranes. Neck: No JVD. No bruit. Cardiovascular: Regular. Positive S-4. Normal S-1 and S-2. No S-3. No murmurs or rubs. Pulmonary: Clear to auscultation B/L. No rales, rhonchi or wheezing Abdomen: Bowel sounds x 4, soft. No rebound, guarding or tenderness. No organomegaly. Extremities: No clubbing, cyanosis or edema. +2 pedal pulses bilaterally. Skin: Warm and dry. Results & Data Vital Signs (Past 12 Hours) Vital Signs Temp Pulse Pulse Resp BP BP Pulse Ox 07/09/19 12:42 36.7 C 81 16 106/70 95 07/09/19 12:15 80 18 98 07/09/19 12:07 80 18 98 07/09/19 12:02 165 H 18 99 07/09/19 11:57 168 H 18 152/88 H 99 07/09/19 11:52 160 H 18 200/160 H 99 07/09/19 11:47 144 H 18 122/82 99 07/09/19 07:56 36.8 C 84 20 118/77 97 07/09/19 03:40 36.7 C 86 16 107/58 L 97
[2019-07-09] MEDS: APIXABAN 5 MG TABLET PO SCH ×2 (15:16→21:06)
[2019-07-09] MEDS: LOSARTAN POTASSIUM 50 MG TAB PO SCH (21:06)
[2019-07-09] MEDS ORDERED: MAGNESIUM SULFATE / D5W 1 GM/100 ML BAG IV ONE (23:21)
[2019-07-09] MEDS ORDERED: POTASSIUM CHLORIDE 20 MEQ TABCR PO STA (23:21)
[2019-07-09] MEDS ORDERED: ATROPINE SULFATE 0.1 MG/ML 5ML SYR IV PRN (23:22)
[2019-07-10 06:35] LABS: Hematocrit (blood only) 43.6 % (42-52); Hemoglobin 15.3 g/dL (14.0-18.0); Mean Corpuscular Hgb Conc 35.1 g/dL (32-36); Mean Corpuscular Volume 90.6 fL (80-100); Mean Platelet Volume 10.4 fL (7.4-10.4); Platelet Count 120 K/uL (130-400); RDW Coefficient of Variation 13.3 % (11.5-14.5); RDW Standard Deviation 44.2 fL (36.4-46.3); Red Blood Count 4.81 M/uL (4.7-6.1); White Blood Count 6.48 K/uL (4.8-10.8)
[2019-07-10 07:00] LABS: Calcium 8.8 mg/dl (8.5-10.1); Creatinine Clr Calc Pharmacy 69.9 ml/min; Est GFR (African American) 79.1; Est GFR (Non-African American) 68.2; Potassium 4.1 mmol/L (3.5-5.1)
[2019-07-10] MEDS: METOPROLOL TARTRATE 25 MG TAB PO SCH (08:05)
[2019-07-10] MEDS: APIXABAN 5 MG TABLET PO SCH (08:06)
--- NOTE | 2019-07-10 09:30 | Cardiology Progress Note ---
Date of Service July 10, 2019 Assessment & Plan (1) Atrial fibrillation with RVR: (2) HTN (hypertension): The patient had an uneventful night post cardioversion. He is maintaining sinus rhythm and tolerating his medications. I had a long discussion with he and his regarding his medications including the potential risks and benefits of anticoagulation. I will arrange follow-up with Dr. Dennis as an outpatient. Physical Exam Physical Exam: General: no acute distress and stated age Head: normocephalic, no masses, lesions, tenderness or abnormalities Eyes: conjunctiva are pink and non-injected, sclera clear Neck: supple, no adenopathy, no bruits, normal jugular venous pulse, no hepatojugular reflux Chest: normal shape and normal respiratory effort Lungs: clear to auscultation and percussion Cardiac Exam: - regular rate & rhythm, no murmurs gallops or rubs - normal S1, normal S2 Pulses: 2(+) throughout Abdomen: abdomen soft, non-tender, no abnormal masses and no hepatosplenomegaly Musculoskeletal: no gait disturbance, no joint inflammation, no deforming arthritis Extremities: no edema and no cyanosis Neuro: grossly normal exam Results & Data Vital Signs (Past 12 Hours) Vital Signs Temp Pulse Pulse Resp BP Pulse Ox 07/10/19 07:56 36.8 C 56 L 17 127/56 L 97 07/10/19 03:05 36.8 C 62 16 118/68 94 07/10/19 01:24 63 07/09/19 23:37 36.8 C 63 16 118/66 95 Laboratory Results Laboratory Results - last 24 hr 07/10/19 07/10/19 06:15 06:15 WBC 6.48 RBC 4.81 Hgb 15.3 Hct 43.6 MCV 90.6 MCH 31.8 MCHC 35.1 RDW Std Deviation 44.2 RDW Coeff of Mp 13.3 Plt Count 120 L MPV 10.4 Sodium 141 Potassium 4.1 Chloride 107 Carbon Dioxide 31 Anion Gap 3.0 BUN 21 H Creatinine 1.08 Est Cr Clr Drug Dosing 69.9 Est GFR ( Amer) 79.1 Est GFR (Non-Af Amer) 68.2 BUN/Creatinine Ratio 19.0 Glucose 104 H Calcium 8.8 Medications Administered Current Inpatient Medications Acetaminophen (Tylenol) 650 mg PO Q4H PRN PRN Reason: Pain or Fever Stop: 08/07/19 14:31 Apixaban (Eliquis) 5 mg PO BID [facility] Stop: 08/08/19 14:29 Last Admin: 07/10/19 08:06 Dose: 5 mg Documented by: Losartan Potassium (Cozaar) 100 mg PO HS [facility] Stop: 08/07/19 20:59 Last Admin: 07/09/19 21:06 Dose: 100 mg Documented by: Metoprolol Tartrate (Lopressor) 12.5 mg PO BID [facility] Stop: 08/08/19 20:59 Last Admin: 07/10/19 08:05 Dose: 12.5 mg Documented by: Polyethylene Glycol (Miralax Powder Packet) 17 gm PO DAILY PRN PRN Reason: Constipation Stop: 08/07/19 14:31
--- NOTE | 2019-07-10 10:29 | Hospitalist Progress Note ---
Date of Service July 10, 2019 Assessment & Plan (1) Atrial fibrillation with RVR: New Onset of Afib Was sent to the ED after found to be in AFIB with RVR on EKG HR 155 bpm at PCP's office Denies any symptoms, he said that he just felt funny Received 15mg diltiazem bolus and was starting on cardizem drip in ED with HR reduced to 70s Troponin negative on admission Cardizem drip was discontinued and was starting on metoprolol ECHO showed no wall motion abnormality with EF btw 60-65 % S/P WIL with successful cardioversion done yesterday by Dr. Dennis maintaining on NSR on tele monitor Continue Metoprolol 12.5 mg BID On IV heparin drip transition to Eliquis Discussed with patient about about anticoagulant risks such as bleeding (hematuria, blood in stool, and internal hemorrhage) (2) HTN (hypertension): BP stable Continue home dose losartan (3) Prediabetes: A1c of 5.7 in January 2019 Carb consistent diet DVT Ppx: IV heparin then transition to Eliquis Code status: FULL Disposition Discharge home today Follow up with your primary care provider Follow up with cardiology dr. Dennis Subjective Pt was seen and examined. Lying in bed with no distress Pt said that he feels fine. He said that he walked in the hallway with no distress Denies any chest pain, palpitation, dizziness and SOB Physical Exam Physical Exam: General- No acute distress Head- atraumatic Eyes- PERRL, EOMI, ENT- oropharynx clear Neck- supple, no JVD Lungs- clear to auscultation Heart- regular rhythm; no murmur Abdomen- normal bowel sounds, soft, nontender Extremities- no calf tenderness Neuro- alert, oriented x 3; PERRL, EOMI; no facial palsy; no dysarthria Skin- warm & dry Results & Data Vital Signs (Past 12 Hours) Vital Signs Temp Pulse Pulse Resp BP Pulse Ox 07/10/19 08:00 59 L 07/10/19 07:56 36.8 C 56 L 17 127/56 L 97 07/10/19 03:05 36.8 C 62 16 118/68 94 07/10/19 01:24 63 07/09/19 23:37 36.8 C 63 16 118/66 95
--- NOTE | 2019-07-11 08:19 | Discharge Summary ---
Date of Service July 10, 2019 Admission HPI Per Admitting Provider This is a 74-year-old male with a PMH of hypertension, prediabetes and idiopathic peripheral neuropathy who presents from PCPs office with tachycardia. Around 2 AM, patient woke up and felt anxious with associated racing pulse but was able to fall back asleep. Had scheduled PCP appointment with Dr. Andrews today and was noted to be tachycardic with a regular pulse. EKG was performed and showed atrial fib/flutter at 155 bpm. Patient did note some lightheadedness at this point but denied dizziness, presyncope, visual changes, chest pain or shortness of breath. D[place] [facility] in [place] who felt that given age and rate, patient should present to ED. Upon arrival in ED, patient noted to have A. fib with RVR at 133 bpm. Was started on diltiazem bolus and drip with reduction of heart rate to high 70s. Currently asymptomatic. Feels anxious, but states he has multiple triggers lately and has felt that way. Had a cold earlier this week and took Mucinex and Claritin-D for 4 days, with last dose yesterday. So no leukocytosis or electrolyte abnormalities. TSH within normal limits. Chest x-ray without acute changes. Urinalysis negative. Denies any fever, chills, headache, nausea, vomiting, abdominal pain, dysuria, diarrhea or constipation. Denies any previous history of diagnosed A. fib, but is felt similar symptoms a few times previously. Admission Exam Per Admitting Provider General Appearance: WD/WN, vitals as above, NAD, sitting up in bed, pleasant, conversing easily Head: normocephalic, atraumatic Eyes: normal inspection, PERRL, conjunctivae normal, anicteric sclerae ENT: external ear and nose normal, oropharynx normal Neck: trachea midline, no thyromegaly normal visual inspection Respiratory: normal respiratory effort, lungs clear to auscultation, no wheeze, rales, rhonchi. Normal insp/exp effort, no accessory muscle use Cardiovascular: irregular rate & rhythm, no murmur appreciated, normal peripheral pulses. Vessels: no JVD or carotid bruit Chest: normal inspection of chest Abdomen/GI: normal bowel sounds, soft, nontender, no hepatosplenomegaly Extremities/Musculoskelatal: no cyanosis or clubbing, extremities motor strength 5/5 Neurologic: PERRL, EOMI, accommodation nl, no face palsy, no dysarthria CN's II-XI intact bilaterally and moves all extremities Psychiatric: A+Ox3, euthymic affect Skin: no rashes, normal color, warm/dry Principal Diagnosis New onset Atrial Fibrillation Hypertension Discharge Exam General- No acute distress Head- atraumatic Eyes- PERRL, EOMI, ENT- oropharynx clear Neck- supple, no JVD Lungs- clear to auscultation Heart- regular rhythm; no murmur Abdomen- normal bowel sounds, soft, nontender Extremities- no calf tenderness Neuro- alert, oriented x 3; PERRL, EOMI; no facial palsy; no dysarthria Skin- warm & dry Discharge Data Allergies Allergy/AdvReac Type Severity Reaction Status Date / Time shellfish derived Allergy Intermediate GI SYMPTOMS Verified 07/08/19 11:36 Consultations 07/08/19 12:17 ED Decision to Admit Stat 07/08/19 14:32 Consult Cardiology Routine Procedures Performed Operation Date: 07/09/19 11:30 Actual Procedures p Cardioversion(Not Applicable) - Andre Dennis DO Ordered Studies XR chest 1V portable CLINICAL HISTORY: weakness COMPARISON STUDY: Chest radiograph January 25, 2017. FINDINGS: Lung volumes are normal. Lungs are clear. There is no pneumothorax or pleural effusion. Cardiac size is normal. Mediastinal contours are normal. There is no evidence for pulmonary edema. IMPRESSION: No acute cardiopulmonary findings. Electronically signed by: Leo Kerns M.D. 07/08/2019 11:16 AM Dictated: 07/08/19 1116 Transcribed: 07/08/19 1116 Hospital Course (1) Atrial fibrillation with RVR: New Onset of Afib Was sent to the ED after found to be in AFIB with RVR on EKG HR 155 bpm at PCP's office Denies any symptoms, he said that he just felt funny Received 15mg diltiazem bolus and was starting on cardizem drip in ED with HR reduced to 70s Troponin negative on admission Cardizem drip was discontinued and was starting on metoprolol ECHO showed no wall motion abnormality with EF btw 60-65 % S/P WIL with successful cardioversion done yesterday by Dr. Dennis maintaining on NSR on tele monitor Continue Metoprolol 12.5 mg BID On IV heparin drip transition to Eliquis Discussed with patient about about anticoagulant risks such as bleeding (hematuria, blood in stool, and internal hemorrhage) (2) HTN (hypertension): BP stable Continue home dose losartan (3) Prediabetes: A1c of 5.7 in January 2019 Carb consistent diet DVT Ppx: IV heparin then transition to Eliquis Code status: FULL Disposition Discharge home today Follow up with your primary care provider Follow up with cardiology dr. Dennis Total Time Total Time Spent Total Time Spent (In Minutes): 35 minutes Total Time Includes: Examination of the Patient, Discharge Planning, Medication Reconciliation, Communication With Other Providers and Other Discharge Plan Discharge Items Patient Disposition: Home - Self-Care Reason For Visit: A FIB WITH RVR Discharge Diagnosis: New onset Atrial Fibrillation Hypertension Activity: Resume your previous activity Activity Comment: As tolerated Non-emergency contact: Primary Care Provider Call non-emergency contact if: you have any medication questions Follow-up/Referrals: Michele Andrews MD [Primary Care Provider] - Diet: Heart Healthy Addtl Attending Provider Instructions: Follow up with your primary care provider Dr. Andrews on 07/20 @ 10:45 AM Follow up with cardiology Dr. Dennis (office will call you for the appointment) Avoid any high level risk activity. Fall precaution Medication Instructions:Eliquis Your condition is typically treated with an anticoagulant. Anticoagulants will thin your blood to help prevent new clots. You should take her medication exactly as directed. Never skip a dose. Never take a double dose. If you miss a dose, take it as soon as you remember. Avoid NSAIDs (Motrin, Aleve, Naproxen, Ibuprofen, Advil, Meloxicam,..) due to risks of bleeding Call your Primary Care doctor if you experience any of the following: Swelling or Pain in your leg Sudden, continuous pain deep in a muscle Pain that worsens when you are active or when you stand still for a long time Chest Pain Sudden Shortness of Breath Rapid or pounding heart beat Fainting Dizziness Cough with blood or bloody sputum Sweating more than normal Bruises Heavy or uncontrolled bleeding Blood in your urine, stool or vomit Black or tarry stools It is important for you to keep your follow up appointments with your medical provider. Pending Studies at Discharge: No Stand-Alone Forms: My [facility] Medications and DC Order Prescriptions: New metoprolol tartrate 25 mg Tablet 12.5 mg PO BID 30 Days Qty: 30 RF: 0 Eliquis 5 mg Tablet 5 mg PO BID 30 Days Qty: 60 RF: 0 Continued Claritin-D 12 Hour 5-120 mg Tablet Extended Release 12 Hr 1 tab PO Q12H PRN (Reason: Sinus Symptoms) RF: 0 losartan 100 mg tablet 100 mg PO HS RF: 0 guaifenesin [Mucinex] 600 mg Tablet Extended Release 12hr 600 mg PO Q12H PRN (Reason: Sinus Symptoms) RF: 0 Discharge Orders: Discharge Order (Routine); Ordered 07/10/19 Ordered By: Yaakov Norton/Other Patient Handouts: Apixaban Oral tablet, Metoprolol Tartrate Oral tablet, Cardioversion Admission Data Admit Date/Time: 07/08/19 13:30 Attending Provider: Yaakov Espinal Admit Provider: Hunter Christopher Primary Care Provider: Michele Andrews Other Providers: Hunter Christopher ; Andre Dennis Other Interventions: Discharge Summary Assessment (RN) Last Done: 07/10/19 10:59 DC Date/Time DO NOT enter until pt leaves facility: 07/10/19 11:40
== END 2019-07-10 11:40 | disposition home or self-care (01) ==
LOC: ED 10:21 → 2E 10:21 → SUATTDRO 13:30 → 2E 14:07